=== PATIENT | female | born 1965 | race Caucasian/White ===

== ENCOUNTER 2017-11-01 15:35 | Emergency (ER) | payer MEDICAID, SELFPAY ==
[2017-11-01 15:40] VITALS: BP 148/91; PULSE 112; RESP 20; TEMP 37.1; O2SAT 99; BMI 31.1
--- NOTE | 2017-11-01 15:45 | XR_ITS ---
XR foot RT min 3V Ordering Physician: Patient Age: 52 years: Female HISTORY: ITS.REASON: FELL ON STAIRS TECHNIQUE: 3 views right foot COMPARISON : None available FINDINGS . No fracture nor dislocation. Toes and metatarsals intact. Joint spaces well-maintained no erosions. A specifically the fifth metatarsal is intact. Plantar calcaneal spur broad-based 5 mm length. Mild flexion at the fourth toe. IMPRESSION: No fracture nor acute findings . No significant acute findings radiographically.
[2017-11-01 15:50] VITALS: BP 148/91; PULSE 112; RESP 20; TEMP 37.1; O2SAT 99; BMI 30.6
--- NOTE | 2017-11-01 16:12 | HMH.EDUTC ---
[facility] [place] Clinical Impression: Foot sprain Qualifiers: Encounter type: initial encounter Laterality: right Qualified Code(s): S93.601A - Unspecified sprain of right foot, initial encounter Disposition: Home, Self-Care Condition on Discharge: Good Instructions: DI for Foot Sprain, DI for Contusion, DI for Abrasion, How to Use Crutches, How To Perform RICE (Rest, Ice, Compress, Elevate) Additional Instructions: *weight bearing as tolerated *RICE, Rest the extremity, Ice 15-20 minutes 3-4 times daily, Compress- wear the nico wrap as discussed as much as possible to help reduce swelling and pain, Elevate the extremity when at rest *Nico wrap is for support and help control swelling, use it except in the shower. Be sure that is not to tight but not to loose either *Elevate when resting *Ibuprofen every 6-8 hours as needed for pain an inflammation. If need something more can take Tylenol in between doses of Ibuprofen to help Immediately follow up for new or worsening of symptoms, or no noticeable improvement over the next 3-5 days Follow up with family doctor if pain persists for referral to Orthopedics if needed Straight to ER if any life threatening symptoms Time of Disposition: 16:25 Medical Decision Making - Medical Records Medical records reviewed: Yes: I reviewed the patient's medical records. - Boy Inquiry Pt receiving controlled substance: No Boy was queried for this patient: No Vital Signs: 11/01/17 15:40 11/01/17 15:50 Temperature 98.7 F 98.7 F Temperature Source Oral Oral Pulse Rate [Left Radial] 112 H 112 H Respiratory Rate 20 20 Blood Pressure [Right Arm] 148/91 148/91 Blood Pressure Mean [Right Arm] 110 110 Blood Pressure Source [Right Arm] Automatic Cuff Blood Pressure Position [Right Arm] Sitting Sitting 02 Sat by Pulse Oximetry 99 99 Oxygen Delivery Method Room Air Orders (Tests/Meds): ORDERS Category Date Time Status Foot XR right minimum 3 views [XR foot RT min 3V] Stat Exams 11/01/17 15:45 Taken - Radiology Data #1 Image(s): Foot/Toes Image Reviewed: Yes I reviewed the patient's radiology image Preliminary Findings: No Fracture Seen [facility] [place] - General Stated complaint: AO 11/01/17 right foot pain Time Seen by Provider: 11/01/17 16:12 Mode of Arrival: Ambulatory Source of Information: Patient Limitations: No Limitations Description of Symptoms (Recalled from Triage Doc. by RN): TRIPPED ON THE STAIRS PRIOR TO ARRICAL INJURING HER RT FOOT. HEENT Symptoms (Recalled from RN notes): No Resp Symptoms (Recalled from RN notes): No Skin Symptoms (Recalled from RN notes): No MS Symptoms (Recalled from RN notes): Yes Functional Status (Recalled from RN notes): NA - History of Present Illness Provider Complaint: Patient state that she tripped and fell down stairs Now having pain in top of foot over right great toe with mild swelling and mild bruising. State that she fell about 2-3 hours ago State that she is able to move toes just has some pain when she tries to bear weight - Related Data Home Medications Medication Instructions Recorded Confirmed Atorvastatin Calcium [Atorvastatin 40 mg PO DAILY 11/01/17 11/01/17 40mg Tab] Losartan/Hydrochlorothiazide 1 each PO DAILY 11/01/17 11/01/17 [Losartan-Hctz 50-12.5 mg Tab] Metformin HCl [Metformin 500mg 0 mg PO BID 11/01/17 11/01/17 Tablet] Montelukast Sodium [Singulair 10mg 10 mg PO PM 11/01/17 11/01/17 tablet] PARoxetine HCl [Paxil] 40 mg PO DAILY 11/01/17 11/01/17 Pantoprazole Sodium [Protonix 40mg 40 mg PO DAILY 11/01/17 11/01/17 tablet] Saxagliptin HCl [Onglyza] 5 mg PO DAILY 11/01/17 11/01/17 Allergies Allergy/AdvReac Type Severity Reaction Status Date / Time cephalexin [CEPHALEXIN] Allergy Mild Verified 11/01/17 15:47 ciprofloxacin [From CIPRO] Allergy Mild Verified 11/01/17 15:47 sulfamethoxazole Allergy Mild Verified 11/01/17 15:47 [From BACTRIM] trimethoprim [From BACTRIM
--- NOTE | 2017-11-01 16:21 | ED_ITS ---
[facility] [place] Clinical Impression: Foot sprain Qualifiers: Encounter type: initial encounter Laterality: right Qualified Code(s): S93.601A - Unspecified sprain of right foot, initial encounter Disposition: Home, Self-Care Condition on Discharge: Good Instructions: DI for Foot Sprain, DI for Contusion, DI for Abrasion, How to Use Crutches, How To Perform RICE (Rest, Ice, Compress, Elevate) Additional Instructions: *weight bearing as tolerated *RICE, Rest the extremity, Ice 15-20 minutes 3-4 times daily, Compress- wear the nico wrap as discussed as much as possible to help reduce swelling and pain, Elevate the extremity when at rest *Nico wrap is for support and help control swelling, use it except in the shower. Be sure that is not to tight but not to loose either *Elevate when resting *Ibuprofen every 6-8 hours as needed for pain an inflammation. If need something more can take Tylenol in between doses of Ibuprofen to help Immediately follow up for new or worsening of symptoms, or no noticeable improvement over the next 3-5 days Follow up with family doctor if pain persists for referral to Orthopedics if needed Straight to ER if any life threatening symptoms Time of Disposition: 16:25 Medical Decision Making - Medical Records Medical records reviewed: Yes: I reviewed the patient's medical records. - Boy Inquiry Pt receiving controlled substance: No Boy was queried for this patient: No Vital Signs: 11/01/17 15:40 11/01/17 15:50 Temperature 98.7 F 98.7 F Temperature Source Oral Oral Pulse Rate [Left Radial] 112 H 112 H Respiratory Rate 20 20 Blood Pressure [Right Arm] 148/91 148/91 Blood Pressure Mean [Right Arm] 110 110 Blood Pressure Source [Right Arm] Automatic Cuff Blood Pressure Position [Right Arm] Sitting Sitting 02 Sat by Pulse Oximetry 99 99 Oxygen Delivery Method Room Air Orders (Tests/Meds): ORDERS Category Date Time Status Foot XR right minimum 3 views [XR foot RT min 3V] Stat Exams 11/01/17 15:45 Taken - Radiology Data #1 Image(s): Foot/Toes Image Reviewed: Yes I reviewed the patient's radiology image Preliminary Findings: No Fracture Seen [facility] [place] HPI - General Stated complaint: AO 11/01/17 right foot pain Time Seen by Provider: 11/01/17 16:12 Mode of Arrival: Ambulatory Source of Information: Patient Limitations: No Limitations Description of Symptoms (Recalled from Triage Doc. by RN): TRIPPED ON THE STAIRS PRIOR TO ARRICAL INJURING HER RT FOOT. HEENT Symptoms (Recalled from RN notes): No Resp Symptoms (Recalled from RN notes): No Skin Symptoms (Recalled from RN notes): No MS Symptoms (Recalled from RN notes): Yes Functional Status (Recalled from RN notes): NA - History of Present Illness Provider Complaint: Patient state that she tripped and fell down stairs Now having pain in top of foot over right great toe with mild swelling and mild bruising. State that she fell about 2-3 hours ago State that she is able to move toes just has some pain when she tries to bear weight - Related Data Home Medications Medication Instructions Recorded Confirmed Atorvastatin Calcium [Atorvastatin 40 mg PO DAILY 11/01/17 11/01/17 40mg Tab] Losartan/Hydrochlorothiazide 1 each PO DAILY 11/01/17 11/01/17 [Losartan-Hctz 50-12.5 mg Tab] Metformin HCl [Metformin 500mg 0 mg PO BID 11/01/17 11/01/17 Tablet]
[2017-11-01 16:34] VITALS: BP 148/91; PULSE 112; RESP 20; TEMP 37.1; O2SAT 99
== END 2017-11-01 16:35 | disposition home or self-care (01) ==
LOC: UTC 16:32
PROVIDERS: Emergency Provider Nurse Practitioner; PCP Nurse Practitioner
DX: S93.601A Unspecified sprain of right foot, initial encounter (principal); W10.9XXA Fall (on) (from) unspecified stairs and steps, initial encounter; Y93.01 Activity, walking, marching and hiking; Y92.019 Unspecified place in single-family (private) house as the place of occurrence of the external cause; E11.9 Type 2 diabetes mellitus without complications; Z79.84 Long term (current) use of oral hypoglycemic drugs
CPT/HCPCS: 73630; 99202

== ENCOUNTER 2022-11-15 06:45 | Emergency (ER) | payer MEDICAID, SELFPAY ==
[2022-11-15 06:47] VITALS: BP 147/81; PULSE 99; RESP 16; TEMP 36.6; O2SAT 99; BMI 28.3
--- NOTE | 2022-11-15 06:58 | XR_ITS ---
PROCEDURE INFORMATION: Exam: XR Lumbosacral Spine Exam date and time: 11/15/2022 7:08 AM Age: 57 years old Clinical indication: Injury or trauma; Fall; Blunt trauma (contusions or hematomas) TECHNIQUE: Imaging protocol: Radiologic exam of the lumbosacral spine. Views: 2 or 3 views. COMPARISON: No relevant prior studies available. FINDINGS: Bones/joints: There is no evidence of acute fracture.There is no evidence of malalignment or dislocation. Intervertebral disc spaces are maintained. Minimal anterior osteophyte formation L4 and L5 Soft tissues: Unremarkable. IMPRESSION: 1. There is no evidence of acute fracture.There is no evidence of malalignment or dislocation. 2. Intervertebral disc spaces are maintained.
--- NOTE | 2022-11-15 06:58 | XR_ITS ---
PROCEDURE INFORMATION: Exam: XR Left Knee Exam date and time: 11/15/2022 7:07 AM Age: 57 years old Clinical indication: Injury or trauma; Fall; Blunt trauma; Knee; Bilateral TECHNIQUE: Imaging protocol: Radiologic exam of the left knee. Views: 3 views. COMPARISON: No relevant prior studies available. FINDINGS: Bones/joints: Mild joint space narrowing in the patellofemoral joint consistent with degenerative changes. There is no evidence of acute fracture.There is no evidence of malalignment or dislocation. Soft tissues: Normal. IMPRESSION: 1. Mild joint space narrowing in the patellofemoral joint consistent with degenerative changes. 2. There is no evidence of acute fracture.There is no evidence of malalignment or dislocation.
--- NOTE | 2022-11-15 06:58 | XR_ITS ---
PROCEDURE INFORMATION: Exam: XR Right Knee Exam date and time: 11/15/2022 7:05 AM Age: 57 years old Clinical indication: Injury or trauma; Fall; Blunt trauma; Knee; Bilateral TECHNIQUE: Imaging protocol: Radiologic exam of the right knee. Views: 3 views. COMPARISON: CR [id number] XR foot RT min 3V 11/01/2017 3:46 PM FINDINGS: Bones/joints: Mild Tricompartmental joint space narrowing and osteophyte formation consistent with degenerative changes. There is no evidence of acute fracture.There is no evidence of malalignment or dislocation. Soft tissues: Normal. IMPRESSION: 1. Mild Tricompartmental joint space narrowing and osteophyte formation consistent with degenerative changes. 2. There is no evidence of acute fracture.There is no evidence of malalignment or dislocation.
--- NOTE | 2022-11-15 07:24 | PC.NURSE ---
PT RETURNED FROM XR, LAB AT BEDSIDE
--- NOTE | 2022-11-15 08:04 | HMH.EDFALL ---
Discharge Plan Disposition Patient Disposition: Home, Self-Care Condition: Fair Prescriptions Prescriptions: New methocarbamol 500 mg tablet 500 mg PO Q8H Qty: 10 0RF No Action atorvastatin 40 MG tablet 40 mg PO DAILY metformin 500 MG tablet 0 mg PO BID pantoprazole 40 MG tablet,delayed release (DR/EC) 40 mg PO DAILY montelukast 10 MG tablet 10 mg PO PM paroxetine HCl [Paxil] 40 MG tablet 40 mg PO DAILY losartan-hydrochlorothiazide 1 EACH tablet 1 ea PO DAILY saxagliptin [Onglyza] 5 MG tablet 5 mg PO DAILY Referrals Follow up/Referrals: Annabelle Gross APRN [Primary Care Provider] - 3 days Clinical Impressions Clinical Impression: Back strain, Contusion of knee, left, Contusion of knee, right Instructions Patient Instructions: How to Prevent Falls, DI for Back Strain or Sprain Print Language Print Language: Indonesian Discharge ED Provider: Nilton Beckham HPI General Chief Complaint: Fall Stated Complaint: bilateral knee pain, back pain, neck pain Time Seen by Provider: 11/15/22 08:02 Mode of Arrival: Ambulatory Source of Information: Patient Limitations: No Limitations Description of Symptoms (Recalled from ER Triage Doc. by RN): pt states she walked in pt's room and floor mats moved and she fell on knees and hands. pt c/o bilateral knee ,and back pain History of Present Illness HPI Narrative: The patient reports that she was working and went into a patient's room. The patient slipped and fell on an antislip mat that broke apart. The patient fell forward on her knees. The patient reports b/l knee pain and b/l lower back pain. MD complaint: fall Fall from: walking Place fall occurred: work Loss of consciousness: none Context: tripped/slipped Location of injury: back Location of injury - extremities: Bilateral: knee Severity: mild Quality: burning Associated symptoms (after fall): denies Related Data Home Medications Medication Instructions Recorded Confirmed atorvastatin 40 mg tablet 40 mg PO DAILY Hypertension 11/01/17 11/01/17 losartan 50 mg-hydrochlorothiazide 1 ea PO DAILY Hypertension 11/01/17 11/01/17 12.5 mg tablet metformin 500 mg tablet 0 mg PO BID Diabetes 11/01/17 11/01/17 montelukast 10 mg tablet 10 mg PO PM ALLERGIES 11/01/17 11/01/17 pantoprazole 40 mg tablet,delayed 40 mg PO DAILY GERD 11/01/17 11/01/17 release paroxetine HCl 40 mg tablet (Paxil) 40 mg PO DAILY Anxiety 11/01/17 11/01/17 saxagliptin 5 mg tablet (Onglyza) 5 mg PO DAILY Diabetes 11/01/17 11/01/17 Previous Rx's Medication Instructions Recorded methocarbamol 500 mg tablet 500 mg PO Q8H #10 tabs 11/15/22 Allergies Allergy/AdvReac Type Severity Reaction Status Date / Time cephalexin [CEPHALEXIN] Allergy Mild Verified 11/01/17 15:47 ciprofloxacin [From CIPRO] Allergy Mild Verified 11/01/17 15:47 sulfamethoxazole Allergy Mild Verified 11/01/17 15:47 [From BACTRIM] trimethoprim [From BACTRIM] Allergy Mild Verified 11/01/17 15:47 [facility] Disclaimer: The information contained in this section may have been updated after the patient was seen, as this information can be updated by other users. Social History Smoking Status: Never smoker alcohol intake: never current occupational status: employed Travel in the last 8 weeks: None ROS Obtained: Yes Systems reviewed as appropriate & no additional complaints except as documented Musculoskeletal Musculoskeletal: Reports arthralgias and Reports back pain Physical Exam General General appearance: alert and in no apparent distress Eye Eye exam: Present normal appearance and EOMI ENT ENT exam: Present normal exam and mucous membranes moist Respiratory Respiratory exam: Present normal lung sounds bilaterally Cardiovascular Cardiovascular exam: Present regular rate Extremities Exam Extremities exam: Present normal inspection Back Exam Back exam: Present normal inspection and te
[2022-11-15 08:30] VITALS: BP 145/80; PULSE 87; RESP 16; TEMP 36.6; O2SAT 99
[2022-11-15 10:49] LABS: COC Drug Screen Collection Only
== END 2022-11-15 08:40 | disposition home or self-care (01) ==
PROVIDERS: Emergency Provider Emergency Medicine; PCP Nurse Practitioner Family
DX: S39.012A Strain of muscle, fascia and tendon of lower back, initial encounter (principal); M25.561 Pain in right knee; M25.562 Pain in left knee; M54.2 Cervicalgia; W01.0XXA Fall on same level from slipping, tripping and stumbling without subsequent striking against object, initial encounter; Y99.0 Civilian activity done for income or pay
CPT/HCPCS: 72100; 73562; 99284

== ENCOUNTER 2024-08-19 19:02 | Emergency (ER) | payer OTHER, SELFPAY ==
[2024-08-19 19:15] VITALS: BP 138/76; PULSE 94; RESP 14; TEMP 37.2; O2SAT 99; BMI 29.7
--- NOTE | 2024-08-19 19:42 | ECG_ITS ---
APPROVED REPORT Exam: Resting ECG HR:89 bpm ECG Measurements Heart Rate [address] 165 P 54 QRSd 82 QRS 33 QT 341 T 9 QTc 388 Conclusion SINUS RHYTHM NORMAL ECG Electronically signed by : ALPESH MOLINA, 08/19/2024 23:27:17
--- NOTE | 2024-08-19 19:42 | ED_ITS ---
Discharge Plan Disposition Patient Disposition: Home, Self-Care Condition: Good Prescriptions Prescriptions: No Action atorvastatin 40 MG tablet 40 mg PO DAILY metformin 500 MG tablet 0 mg PO BID pantoprazole 40 MG tablet,delayed release (DR/EC) 40 mg PO DAILY montelukast 10 MG tablet 10 mg PO PM paroxetine HCl [Paxil] 40 MG tablet 40 mg PO DAILY losartan-hydrochlorothiazide 1 EACH tablet 1 ea PO DAILY saxagliptin [Onglyza] 5 MG tablet 5 mg PO DAILY methocarbamol 500 mg tablet 500 mg PO Q8H Qty: 10 0RF Referrals Follow up/Referrals: Provider,Referral, MD [Primary Care Provider] - See instructions Activity Restrictions/Add. Instructions Additional Instructions/Restrictions: For any complaints return Follow-up with primary care Clinical Impressions Clinical Impression: Electric shock Qualifiers: Encounter type: initial encounter Qualified Code(s): T75.4XXA - Electrocution, initial encounter Instructions Patient Instructions: DI for Electric Shock Injuries Print Language Print Language: Welsh Discharge ED Provider: Mauri Iraheta General Adult HPI <Jasiel Tam ([facility]), HORSE BREAKER - Last Filed: 08/19/24 21:20> General Chief complaint: Chest Pain Stated complaint: pacemaker shocked pt while moving bed Time Seen by Provider: 08/19/24 19:18 Mode of Arrival: EMS Source of Information: Patient and EMS Description of Symptoms (Recalled from ER Triage Doc. by RN): pt presents via ems with c/o electrocution from frayed wire while at work. 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 Pt reports tingling from head to toe on the left side with associated headache and chest pressure. History of Present Illness HPI narrative: 59-year-old female presents for numbness and tingling to left arm, leg and face. Patient states she was at work when a bed was malfunctioning she crawled under the bed to see what was going on there was a bedpost on the cord and when her face was touching the bed when she touched the cord she felt a lightening bolt to the face and was thrown back from being shocked. Patient states she feels tingly in her left jaw, left arm and leg. Related Data Home Medications ?Medication ?Instructions ?Recorded ?Confirmed atorvastatin 40 mg tablet 40 mg PO DAILY Hypertension 11/01/17 11/01/17 losartan 50 mg-hydrochlorothiazide 1 ea PO DAILY Hypertension 11/01/17 11/01/17 12.5 mg tablet metformin 500 mg tablet 0 mg PO BID Diabetes 11/01/17 11/01/17 montelukast 10 mg tablet 10 mg PO PM ALLERGIES 11/01/17 11/01/17 pantoprazole 40 mg tablet,delayed 40 mg PO DAILY GERD 11/01/17 11/01/17 release paroxetine HCl 40 mg tablet (Paxil) 40 mg PO DAILY Anxiety 11/01/17 11/01/17 saxagliptin 5 mg tablet (Onglyza) 5 mg PO DAILY Diabetes 11/01/17 11/01/17 Previous Rx's ?Medication ?Instructions ?Recorded methocarbamol 500 mg tablet 500 mg PO Q8H #10 tabs 11/15/22 Allergies Allergy/AdvReac Type Severity Reaction Status Date / Time cephalexin (CEPHALEXIN) Allergy Mild Verified 11/01/17 15:47 ciprofloxacin (From CIPRO) Allergy Mild Verified 11/01/17 15:47 sulfamethoxazole (From Allergy Mild Verified 11/01/17 15:47 BACTRIM) trimethoprim (From BACTRIM) Allergy Mild Verified 11/01/17 15:47 PFSH <[facility] [employer]SE [facility] - Last Filed: 08/19/24 21:20> PFS Disclaimer: The information contained in this section may have been updated after the patient was seen, as this information can be updated by other users. Social History , [employer]SE [employer]ER) Smoking Status: Never smoker alcohol intake: never current occupational status: employed Travel in the last 8 weeks: None Have you lived/traveled outside [place] in past 30 days?: No Contact w/someone who lives/traveled outside [place] past 30 days?: No Exposure to someone with infectious disease in past 14 days?: No Do you have a fever (greater than 100.4 F or 38 C)?: No Have you tested positive for COVID-19: No Exposed to someone with COVID-19 in past 14 days?: No Do you have a sore throat?: No Do you have a cough?: No Do you have any weakness?: No Do you have any diarrhea?: No Are you experiencing any unusual bleeding?: No Do you have any muscle aches/pain?: No Do you have any abdominal pain?: No Are you experiencing loss of taste or smell?: No <Jasiel humberto ([facility]), H[employer]SE [employer]ER - Last Filed: 08/19/24 21:20> ROS Obtained: Yes Systems reviewed as appropriate & no additional complaints except as documented Cardiovascular Cardiovascular: Reports system reviewed and no additional complaints, except as documented and Reports as per HPI Musculoskeletal Musculoskeletal: Reports system reviewed and no additional complaints, except as documented and Reports as per HPI Neurologic Neurologic: Reports system reviewed and no additional complaints, except as documented and Reports as per HPI Physical Exam <Jasiel Tam ([facility]), HORSE BRE[employer]ER - Last Filed: 08/19/24 21:20> General General appearance: alert and in no apparent distress Eye Eye exam: Present normal appearance and PERRL ENT ENT exam: Present normal exam Respiratory Respiratory exam: Present normal lung sounds bilaterally Cardiovascular Cardiovascular exam: Present regular rate and normal rhythm Neurological Exam Neurological exam: Present alert, oriented X3 and CN II-XII intact Skin Skin exam: Present warm and intact Medical Decision Making <Jasiel Tam ([facility]), H[employer]SE BRE[employer]ER - Last Filed: 08/19/24 21:20> Medical Records Medical records reviewed: Yes I reviewed the patient's medical records. Screening: Per USPSTF and CDC recommendations, given the prevalence of disease in our region, it is our hospital?s policy to screen for HIV and viral Hepatitis for all patients aged 18 and over and those with ongoing risk factors. Boy Inquiry Pt receiving controlled substance: No Boy was queried for this patient: No Vital Signs: 08/19/24 19:15 08/19/24 20:54 08/19/24 21:28 Temperature 99 F 97.9 F Temperature Source Oral Pulse Rate 84 76 Pulse Rate [Right Radial] 94 H Respiratory Rate 14 18 20 Blood Pressure 153/76 H 153/76 H Blood Pressure [Right Arm] 138/76 Blood Pressure Mean [Right Arm] 96 Blood Pressure Position [Right Arm] Sitting 02 Sat by Pulse Oximetry 99 98 Oxygen Delivery Method Room Air Room Air Lab Data Lab results reviewed: Yes I reviewed the patient's lab results. Lab Results 08/19/24 19:27: HCV Ab LARRY w/Rflx PCR Qn Negative, HIV Ag/Ab Combo Qual Negative 08/19/24 20:25: WBC 9.6, RBC 4.88, Hgb 14.8, Hct 44.0, MCV 90.2, MCH 30.3, MCHC 33.6, RDW 11.9, Plt Count 311, MPV 9.3, Neut % (Auto) 63.2, Lymph % (Auto) 29.5, [place] % (Auto) 5.7, Eos % (Auto) 0.9, Baso % (Auto) 0.5, Neut # (Auto) 6.1, Lymph # (Auto) 2.8, [place] # (Auto) 0.6, Eos # (Auto) 0.1, Baso # (Auto) 0.1, Sodium 139, Potassium 3.5, Chloride 106, Carbon Dioxide 21 L, Anion Gap 15.5 H, BUN 14, Creatinine 0.60, Estimated Creat Clear 121, Estimated GFR 102, Est GFR ( Amer) 124, Glucose 121 H, Calcium 9.2, Total Bilirubin 0.8, AST 40 H, ALT 25, A lkaline Phosphatase 139 H, Total Creatine Kinase 55, Troponin I < 0.01, Total Protein 8.2, Albumin 4.6, Globulin 3.6 H, Albumin/Globulin Ratio 1.3 08/19/24 20:25 08/19/24 20:25 Orders (Tests/Meds): ORDERS Category Date Time Status Chest XR -- portable [XR chest portable] Stat Exams 08/19/24 19:42 Completed CBC [Complete Blood Count Auto Diff] Stat Lab 08/19/24 20:25 Completed CK [Creatine Kinase] Stat Lab 08/19/24 20:25 Completed CMP [Comprehensive Metabolic Panel] Stat Lab 08/19/24 20:25 Completed HIV Combo Stat Lab 08/19/24 19:27 Completed Hepatitis C Ab Qual. W/ RFX Stat Lab 08/19/24 19:27 Completed Trop I [Troponin I] Stat Lab 08/19/24 20:25 Completed EKG Request [ECG Request] Stat Y 08/19/24 19:42 Ordered Medical Decision Narrative: In summary patient is a 59-year-old female who presents to the emergency department for evaluation of numbness and tingling to the left side of the body status post electrocution.. Patient is hemodynamically stable upon arrival, afebrile. Unremarkable physical exam. Differential diagnosis includes electrocution. Initial workup will be conducted with labs, chest x-ray, EKG,. Initial inventions include monitoring vitals and labs. Initial workup reviewed by nh labs, EKG, chest x-ray. Upon repeat evaluation patient states she is feeling fine has mild numbness and tingling in her face arm and leg but wants to go home. Given this patient appropriate discharge at this time if any symptoms worsen she is to come back to the ER for eval <Mauri Iraheta MD - Last Filed: 08/20/24 19:21> Vital Signs: 08/19/24 19:15 08/19/24 20:54 08/19/24 21:28 Temperature 99 F 97.9 F Temperature Source Oral Pulse Rate 84 76 Pulse Rate [Right Radial] 94 H Respiratory Rate 14 18 20 Blood Pressure 153/76 H 153/76 H Blood Pressure [Right Arm] 138/76 Blood Pressure Mean [Right Arm] 96 Blood Pressure Position [Right Arm] Sitting 02 Sat by Pulse Oximetry 99 98 Oxygen Delivery Method Room Air Room Air Lab Data Lab Results 08/19/24 19:27: HCV Ab LARRY w/Rflx PCR Qn Negative, HIV Ag/Ab Combo Qual Negative 08/19/24 20:25: WBC 9.6, RBC 4.88, Hgb 14.8, Hct 44.0, MCV 90.2, MCH 30.3, MCHC 33.6, RDW 11.9, Plt Count 311, MPV 9.3, Neut % (Auto) 63.2, Lymph % (Auto) 29.5, [place] % (Auto) 5.7, Eos % (Auto) 0.9, Baso % (Auto) 0.5, Neut # (Auto) 6.1, Lymph # (Auto) 2.8, [place] # (Auto) 0.6, Eos # (Auto) 0.1, Baso # (Auto) 0.1, Sodium 139, Potassium 3.5, Chloride 106, Carbon Dioxide 21 L, Anion Gap 15.5 H, BUN 14, Creatinine 0.60, Estimated Creat Clear 121, Estimated GFR 102, Est GFR ( Amer) 124, Glucose 121 H, Calcium 9.2, Total Bilirubin 0.8, AST 40 H, ALT 25, A lkaline Phosphatase 139 H, Total Creatine Kinase 55, Troponin I < 0.01, Total Protein 8.2, Albumin 4.6, Globulin 3.6 H, Albumin/Globulin Ratio 1.3 Orders (Tests/Meds): ORDERS Category Date Time Status Chest XR -- portable [XR chest portable] Stat Exams 08/19/24 19:42 Completed CBC [Complete Blood Count Auto Diff] Stat Lab 08/19/24 20:25 Completed CK [Creatine Kinase] Stat Lab 08/19/24 20:25 Completed CMP [Comprehensive Metabolic Panel] Stat Lab 08/19/24 20:25 Completed HIV Combo Stat Lab 08/19/24 19:27 Completed Hepatitis C Ab Qual. W/ RFX Stat Lab 08/19/24 19:27 Completed Trop I [Troponin I] Stat Lab 08/19/24 20:25 Completed EKG Request [ECG Request] Stat Y 08/19/24 19:42 Ordered Medical Decision Narrative: In summary patient is a 59-year-old female who presents to the emergency department for evaluation of numbness and tingling to the left side of the body status post electrocution.. Patient is hemodynamically stable upon arrival, afebrile. Unremarkable physical exam. Differential diagnosis includes electrocution. Initial workup will be conducted with labs, chest x-ray, EKG,. Initial inventions include monitoring vitals and labs. Initial workup reviewed by me labs, EKG, chest x-ray. Upon repeat evaluation patient states she is feeling fine has mild numbness and tingling in her face arm and leg but wants to go home. Given this patient appropriate discharge at this time if any symptoms worsen she is to come back to the ER for eval I was consulted by the ALE, and we discussed the complexity of the problems being addressed.I approved the treatment and management plan for this patient?s care in the Emergency Department, thus performing a substantive portion of the medical decision making.Signed, Mauri Iraheta MD MBA Critical Care <Jasiel Tam ([facility]), HORSE BREAKER - Last Filed: 08/19/24 21:20> Critical Care Time Critical Care Time: Yes Attestation: On 08/19/24, the high probability of a clinically significant, sudden or life threatening deterioration of the following system(s) required my full and direct attention, intervention and personal management. The time I documented below is in addition to time spent performing reported procedures but includes the following listed in this critical care notation. Total Time Total Critical Care Time: 20
--- NOTE | 2024-08-19 19:42 | XR_ITS ---
PROCEDURE INFORMATION: Exam: XR Chest Exam date and time: 08/19/2024 7:49 PM Age: 59 years old Clinical indication: Other: Shock TECHNIQUE: Imaging protocol: Radiologic exam of the chest. Views: 1 view. COMPARISON: No relevant prior studies available. FINDINGS: Lungs: Pleuroparenchymal scarring of the lung bases with subsegmental atelectasis is present without consolidations or pleural effusions that project above the diaphragm. Pleural spaces: Unremarkable. No pleural effusion. No pneumothorax. Heart/Mediastinum: Unremarkable. No cardiomegaly. Bones/joints: Unremarkable. IMPRESSION: Pleuroparenchymal scarring of the lung bases with subsegmental atelectasis is present without consolidations or pleural effusions that project above the diaphragm.
[2024-08-19 20:24] LABS: HIV Combo NEGATIVE (Negative)
--- NOTE | 2024-08-19 20:30 | ECG_ITS ---
APPROVED REPORT Exam: Resting ECG HR:82 bpm ECG Measurements Heart Rate 82 AXES WY 173 P 65 QRSd 85 QRS 44 QT 374 T 22 QTc 412 Conclusion SINUS RHYTHM NORMAL ECG Electronically signed by : ALPESH MOLINA, 08/19/2024 23:26:38
[2024-08-19 20:32] LABS: Hepatitis C Ab Qual. W/ RFX NEGATIVE (Negative)
[2024-08-19 20:41] LABS: Albumin Level 4.6 g/dl (3.5-5.0); Chloride 106 mmol/L (98-107); Potassium 3.5 mmoL/L (3.5-5.1); Sodium 139 mmol/L (136-145)
[2024-08-19 20:44] LABS: Alanine Aminotransferase 25 U/L (12-78); Albumin/Globulin Ratio 1.3 (1.1-1.8); Alkaline Phosphatase 139 U/L (38-126); Anion Gap 15.5 mEq/L (5-15); Aspartate Amino Transferase 40 U/L (14-36); Basophils # 0.1 K/mm3 (0-0.2); Basophils % 0.5 % (0.1-2.0); Bilirubin,Total 0.8 mg/dl (0.2-1.3); Blood Urea Nitrogen 14 mg/dl (7-17); Carbon Dioxide 21 mmol/L (22.0-30.0); Creatine Kinase 55 U/L (30-135); Creatinine Clearance Estimated 121 mL/min (50-200); Eosinophils # 0.1 K/mm3 (0.0-0.4); Eosinophils % 0.9 % (0.1-12.0); Estimated Glomerular Filt Rate 102 ml/min (>60); GFR (African American) 124 ML/MIN (>60); Globulin 3.6 g/dL (1.3-3.2); Hemoglobin 14.8 g/dL (12.2-16.2); Lymphocytes # 2.8 K/mm3 (0.7-4.5); Lymphocytes % 29.5 % (10-50); Mean Corpuscular HGB Conc 33.6 g/dL (31.8-35.4); Mean Corpuscular Hemoglobin 30.3 pg (27.0-31.2); Mean Corpuscular Volume 90.2 fl (81-99); Mean Platelet Volume 9.3 fl (7.4-10.4); Monocytes # 0.6 K/mm3 (0.1-1.0); Monocytes % 5.7 % (1.7-9.3); Neutrophils # 6.1 K/mm3 (1.8-7.8); Neutrophils % 63.2 % (37.0-80.0); Nucleated Red Blood Cells # 0 10^3/uL; Nucleated Red Blood Cells % 0 %; Platelet Count 311 K/mm3 (142-424); Red Blood Count 4.88 M/mm3 (4.20-5.40); Red Cell Distribution Width 11.9 % (11.5-17.5); Red Cell Distribution Width-SD 38.5 fL; Total Protein,Serum 8.2 g/dl (6.3-8.2); White Blood Count 9.6 K/mm3 (4.8-10.8)
[2024-08-19 20:45] LABS: Calcium 9.2 mg/dl (8.4-10.2); Glucose 121 mg/dl (74-100)
[2024-08-19 20:54] VITALS: BP 153/76; PULSE 84; RESP 18; O2SAT 98
[2024-08-19 20:57] LABS: Troponin I < 0.01 ng/ml (0.00-0.034)
[2024-08-19 21:28] VITALS: BP 153/76; PULSE 76; RESP 20; TEMP 36.6; O2SAT 97
== END 2024-08-19 21:34 | disposition home or self-care (01) ==
PROVIDERS: Nurse Practitioner Family; Emergency Provider Emergency Medicine
DX: T75.4XXA Electrocution, initial encounter (principal); R07.89 Other chest pain; R20.2 Paresthesia of skin; R51.9 Headache, unspecified; Z11.59 Encounter for screening for other viral diseases; Z11.4 Encounter for screening for human immunodeficiency virus [HIV]; W86.8XXA Exposure to other electric current, initial encounter
CPT/HCPCS: 99284; 71045; 80053; 82550; 84484; 85025; 86803; 87389; 93005

== ENCOUNTER 2024-09-19 12:08 | Outpatient (CLI) | payer MEDICAID, SELFPAY | END 2024-09-19 23:59 | LOC: LAB.DROPOF 09-22 12:09 | PROVIDERS: Visit Provider Student in an Organized Health Care Education/Training Program | DX: N39.0 Urinary tract infection, site not specified (principal) | CPT/HCPCS: 87086 ==

== ENCOUNTER 2024-10-06 06:35 | Emergency (ER) | payer MEDICAID, SELFPAY ==
[2024-10-06] VITALS (7 sets, daily range): BP systolic 99–153; BP diastolic 50–75; PULSE 72–85; RESP 17; TEMP 37–37.1; O2SAT 95–98; BMI 30.8
--- NOTE | 2024-10-06 06:52 | XR_ITS ---
FINAL REPORT TECHNIQUE: Chest PA & Lateral CLINICAL HISTORY: 3d cough, body aches COMPARISON: 08/19/2024 FINDINGS: 2 views of the chest were performed. The heart size is normal. The mediastinum is within normal limits. There is no acute cardiopulmonary process. There are no pleural effusions. There is no pneumothorax. The bony thorax appears intact. IMPRESSION: No acute cardiopulmonary process. Reviewed, Interpreted and Dictated by Mitesh Reeves MD Transcribed by Mary Chow Authenticated and . [facility]
--- NOTE | 2024-10-06 06:53 | HMH.EDGENADL ---
Discharge Plan Disposition Patient Disposition: Home, Self-Care Condition: Good Prescriptions Prescriptions: New promethazine-codeine 6.25-10 mg/5 mL syrup 5 ml PO Q6H PRN (Reason: cough) Qty: 118 0RF No Action nitrofurantoin monohyd/m-cryst 100 mg capsule 100 mg PO Q12H 7 Days Qty: 14 0RF Rx Instructions: must administer with a meal/food atorvastatin 40 MG tablet 40 mg PO DAILY metformin 500 MG tablet 0 mg PO BID pantoprazole 40 MG tablet,delayed release (DR/EC) 40 mg PO DAILY montelukast 10 MG tablet 10 mg PO PM paroxetine HCl [Paxil] 40 MG tablet 40 mg PO DAILY losartan-hydrochlorothiazide 1 EACH tablet 1 ea PO DAILY saxagliptin [Onglyza] 5 MG tablet 5 mg PO DAILY methocarbamol 500 mg tablet 500 mg PO Q8H Qty: 10 0RF Referrals Follow up/Referrals: Parker Ortiz PA [Primary Care Provider, Medical] - See instructions Activity Restrictions/Add. Instructions Additional Instructions/Restrictions: I have prescribed a cough medication for you to take as needed. Please use your inhalers that you are previously prescribed as needed. The steroids you were given in the emergency department will last for approximately 72 hours. Please return with any new or worsening symptoms. Clinical Impressions Clinical Impression: Acute upper respiratory infection Instructions Patient Instructions: Cough Print Language Print Language: Kyrgyz Discharge ED Provider: Mauri Iraheta General Adult HPI <Anjelica Iverson MD - Last Filed: 10/06/24 07:00> General Chief complaint: Cough Stated complaint: lung congestion cough Time Seen by Provider: 10/06/24 06:45 Mode of Arrival: Ambulatory Source of Information: Patient Description of Symptoms (Recalled from ER Triage Doc. by RN): Patient to ED with complaints of cough and congestion x3days. Patient states that dayquil is no longer helping her cough. Denies fever, N/V/D. History of Present Illness HPI narrative: 59-year-old female who reports she now has diastolic dysfunction because of COVID as well as diabetes presents to the ER for cough and congestion for the last 3 days. Patient reports she believes she has had 4 upper respiratory infections since April. She states she gets symptoms like this with cough and congestion, the cough seems to settle in her chest, and then she gets over it. She reports she has had multiple infections this year but has not been on any antibiotics. Patient reports she was at work having coughing fits so they did a COVID test which was negative. She reports that her coworkers prompted her to come to the ER because she looked pale according to them. Patient reports body aches especially worse with coughing, no fever, headache, dizziness, numbness, tingling, weakness, shortness of breath, no nausea, vomiting, or diarrhea. She reports she has been taking DayQuil without improvement of symptoms. Related Data Home Medications ?Medication ?Instructions ?Recorded ?Confirmed atorvastatin 40 mg tablet 40 mg PO DAILY Hypertension 11/01/17 09/19/24 losartan 50 mg-hydrochlorothiazide 1 ea PO DAILY Hypertension 11/01/17 09/19/24 12.5 mg tablet metformin 500 mg tablet 0 mg PO BID Diabetes 11/01/17 09/19/24 montelukast 10 mg tablet 10 mg PO PM ALLERGIES 11/01/17 09/19/24 pantoprazole 40 mg tablet,delayed 40 mg PO DAILY GERD 11/01/17 09/19/24 release paroxetine HCl 40 mg tablet (Paxil) 40 mg PO DAILY Anxiety 11/01/17 09/19/24 saxagliptin 5 mg tablet (Onglyza) 5 mg PO DAILY Diabetes 11/01/17 09/19/24 Previous Rx's ?Medication ?Instructions ?Recorded methocarbamol 500 mg tablet 500 mg PO Q8H #10 tabs 11/15/22 nitrofurantoin 100 mg PO Q12H 7 days #14 caps 09/19/24 monohydrate/macrocrystals 100 mg capsule promethazine 6.25 mg-codeine 10 5 ml PO Q6H PRN cough #118 mL 10/06/24 mg/5 mL syrup Allergies Allergy/AdvReac Type Severity Reaction Status Date / Time cephalexin (CEPHALEXIN) Allergy Mild Verified 09/19/24 16:08 ciprofloxacin (From CIPRO) Allergy Mild Verified 09/19/24 16:08 sulfamethoxazole (From Allergy Mild Verified 09/19/24 16:08 BACTRIM) trimethoprim (From BACTRIM) Allergy Mild Verified 09/19/24 16:08 [facility] <Anjelica Iverson MD - Last Filed: 10/06/24 07:00> [facility] Disclaimer: The information contained in this section may have been updated after the patient was seen, as this information can be updated by other users. Social History Smoking Status: Never smoker alcohol intake: never current occupational status: employed Travel in the last 8 weeks?: None Have you lived/traveled outside [place] in past 30 days?: No Contact w/someone who lives/traveled outside [place] past 30 days?: No Exposure to someone with infectious disease in past 14 days?: No Do you have a fever (greater than 100.4 F or 38 C)?: No Have you tested positive for COVID-19?: No Exposed to someone with COVID-19 in past 14 days?: No Do you have a sore throat?: No Do you have a cough?: Yes Do you have any weakness?: Yes Do you have any diarrhea?: No Are you experiencing any unusual bleeding?: No Do you have any muscle aches/pain?: No Do you have any abdominal pain?: No Are you experiencing loss of taste or smell?: No <Anjelica Iverson MD - Last Filed: 10/06/24 07:00> ROS Obtained: Yes Systems reviewed as appropriate & no additional complaints except as documented Per HPI Physical Exam <Anjelica Iverson MD - Last Filed: 10/06/24 07:00> General General appearance: alert and in no apparent distress Head Head exam: atraumatic and normocephalic Eye Eye exam: Present PERRL and EOMI ENT ENT exam: Present mucous membranes moist Neck Neck exam: Present normal inspection and full ROM Chest Chest inspection: Present symmetric chest wall rise Respiratory Respiratory exam: Present normal lung sounds bilaterally and other (Moving good air throughout, saturating 98% on room air); Absent respiratory distress, wheezes or stridor Cardiovascular Cardiovascular exam: Present regular rate and normal rhythm Extremities Exam Extremities exam: Present full ROM; Absent edema Neurological Exam Neurological exam: Present alert and oriented X3; Absent motor sensory deficit Psychiatric Psychiatric exam: Present normal affect and normal mood Skin Skin exam: Present warm and dry Medical Decision Making <Anjelica Iverson MD - Last Filed: 10/06/24 07:00> Medical Records Medical records reviewed: Yes I reviewed the patient's medical records. Screening: Per USPSTF and CDC recommendations, given the prevalence of disease in our region, it is our hospital?s policy to screen for HIV and viral Hepatitis for all patients aged 18 and over and those with ongoing risk factors. Boy Inquiry Pt receiving controlled substance: No Vital Signs: 10/06/24 06:46 10/06/24 07:00 10/06/24 07:31 Temperature 98.6 F Temperature Source Oral Pulse Rate 82 80 Pulse Rate [Right] 85 Respiratory Rate 17 Blood Pressure 125/72 143/74 H Blood Pressure [Right Arm] 153/75 H Blood Pressure Mean [Right Arm] 101 Blood Pressure Source Blood Pressure Source [Right Arm] Automatic Cuff Blood Pressure Position Blood Pressure Position [Right Arm] Sitting 02 Sat by Pulse Oximetry 98 96 98 Oxygen Delivery Method Room Air Room Air Room Air 10/06/24 07:35 10/06/24 07:35 10/06/24 07:35 Temperature Temperature Source Pulse Rate 77 79 Pulse Rate [Right] Respiratory Rate Blood Pressure Blood Pressure [Right Arm] Blood Pressure Mean [Right Arm] Blood Pressure Source Blood Pressure Source [Right Arm] Blood Pressure Position Blood Pressure Position [Right Arm] 02 Sat by Pulse Oximetry 98 Oxygen Delivery Method Room Air 10/06/24 08:00 10/06/24 08:30 10/06/24 08:47 Temperature 98.7 F Temperature Source Oral Pulse Rate 73 72 72 Pulse Rate [Right] Respiratory Rate 17 Blood Pressure 119/63 99/50 L 99/50 L Blood Pressure [Right Arm] Blood Pressure Mean [Right Arm] Blood Pressure Source Automatic Cuff Blood Pressure Source [Right Arm] Blood Pressure Position Sitting Blood Pressure Position [Right Arm] 02 Sat by Pulse Oximetry 97 95 Oxygen Delivery Method Room Air Room Air Room Air Lab Data Lab Results 10/06/24 06:42: SARS-CoV-2 (PCR) Not detected, Influenza A Untype (PCR) Not detected, Influenza Type B (PCR) Not detected Orders (Tests/Meds): ED MEDICATIONS Discontinued Medications Generic Name Dose Route Start Last Admin Trade Name Freq PRN Reason Stop Dose Admin Dexamethasone 10 mg 10/06/24 08:37 10/06/24 08:43 Dexamethasone 4mg Tablet PO 10/06/24 08:38 10 mg ONCE ONE Administration Lidocaine HCl 5 ml 10/06/24 06:59 10/06/24 07:35 Lidocaine 2% 5ml Pf Vial IH 10/06/24 07:00 5 ml ONCE ONE Administration ORDERS Category Date Time Status CXR 2 view (NOT portable) [XR chest 2V] Stat Exams 10/06/24 06:52 Completed Rapid PCR Covid and Flu A/B Stat Lab 10/06/24 06:42 Completed Medical Decision Narrative: In summary, this 59-year-old female with comorbidities described in the HPI presents to the emergency department today with cough and congestion, body aches. On initial evaluation patient is hemodynamically stable, afebrile, GCS 15, cardiac exam benign, lungs clear bilaterally with no adventitious sounds, good air movement throughout and saturating well on room air. Differential diagnosis includes but is not limited to viral syndrome including COVID, influenza, other virus, I also considered the possibility of postviral cough, bronchitis, pneumonia. I have lower suspicion for pneumonia since patient is afebrile and has only been ill for the last 3 days. Patient reports they get points for missing work unless it is COVID or flu so COVID and flu test has been ordered. Additionally two-view chest x-ray was ordered to assess the lung parenchyma. Patient has persistent dry cough while in the ER so lidocaine nebulizer was administered for comfort. Patient handed off to Dr. Iraheta in stable condition pending studies. <Mauri Iraheta MD - Last Filed: 10/06/24 13:30> Boy Inquiry Pt receiving controlled substance: Yes Boy was queried for this patient: Yes Risks and benefits of using a controlled substance: were discussed with pt by me Vital Signs: 10/06/24 06:46 10/06/24 07:00 10/06/24 07:31 Temperature 98.6 F Temperature Source Oral Pulse Rate 82 80 Pulse Rate [Right] 85 Respiratory Rate 17 Blood Pressure 125/72 143/74 H Blood Pressure [Right Arm] 153/75 H Blood Pressure Mean [Right Arm] 101 Blood Pressure Source Blood Pressure Source [Right Arm] Automatic Cuff Blood Pressure Position Blood Pressure Position [Right Arm] Sitting 02 Sat by Pulse Oximetry 98 96 98 Oxygen Delivery Method Room Air Room Air Room Air 10/06/24 07:35 10/06/24 07:35 10/06/24 07:35 Temperature Temperature Source Pulse Rate 77 79 Pulse Rate [Right] Respiratory Rate Blood Pressure Blood Pressure [Right Arm] Blood Pressure Mean [Right Arm] Blood Pressure Source Blood Pressure Source [Right Arm] Blood Pressure Position Blood Pressure Position [Right Arm] 02 Sat by Pulse Oximetry 98 Oxygen Delivery Method Room Air 10/06/24 08:00 10/06/24 08:30 10/06/24 08:47 Temperature 98.7 F Temperature Source Oral Pulse Rate 73 72 72 Pulse Rate [Right] Respiratory Rate 17 Blood Pressure 119/63 99/50 L 99/50 L Blood Pressure [Right Arm] Blood Pressure Mean [Right Arm] Blood Pressure Source Automatic Cuff Blood Pressure Source [Right Arm] Blood Pressure Position Sitting Blood Pressure Position [Right Arm] 02 Sat by Pulse Oximetry 97 95 Oxygen Delivery Method Room Air Room Air Room Air Lab Data Lab Results 10/06/24 06:42: SARS-CoV-2 (PCR) Not detected, Influenza A Untype (PCR) Not detected, Influenza Type B (PCR) Not detected Orders (Tests/Meds): ED MEDICATIONS Discontinued Medications Generic Name Dose Route Start Last Admin Trade Name Freq PRN Reason Stop Dose Admin Dexamethasone 10 mg 10/06/24 08:37 10/06/24 08:43 Dexamethasone 4mg Tablet PO 10/06/24 08:38 10 mg ONCE ONE Administration Lidocaine HCl 5 ml 10/06/24 06:59 10/06/24 07:35 Lidocaine 2% 5ml Pf Vial IH 10/06/24 07:00 5 ml ONCE ONE Administration ORDERS Category Date Time Status CXR 2 view (NOT portable) [XR chest 2V] Stat Exams 10/06/24 06:52 Completed Rapid PCR Covid and Flu A/B Stat Lab 10/06/24 06:42 Completed Medical Decision Narrative: In summary, this 59-year-old female with comorbidities described in the HPI presents to the emergency department today with cough and congestion, body aches. On initial evaluation patient is hemodynamically stable, afebrile, GCS 15, cardiac exam benign, lungs clear bilaterally with no adventitious sounds, good air movement throughout and saturating well on room air. Differential diagnosis includes but is not limited to viral syndrome including COVID, influenza, other virus, I also considered the possibility of postviral cough, bronchitis, pneumonia. I have lower suspicion for pneumonia since patient is afebrile and has only been ill for the last 3 days. Patient reports they get points for missing work unless it is COVID or flu so COVID and flu test has been ordered. Additionally two-view chest x-ray was ordered to assess the lung parenchyma. Patient has persistent dry cough while in the ER so lidocaine nebulizer was administered for comfort. Patient handed off to Dr. Iraheta in stable condition pending studies. Mauri Iraheta MD LLUVIA: I assumed care of this patient from the previous emergency medicine physician. COVID and flu testing is negative, patient elected to be discharged prior to x-ray radiology report however this reveals no acute processes. On my independent interpretation I visualize no acute infectious processes. Patient reports improvement of symptoms upon repeat evaluation. Diagnosis at this time most consistent with bronchitis. Patient will follow-up with a primary care physician. Critical Care <Anjelica Iverson MD - Last Filed: 10/06/24 07:00> Critical Care Time Critical Care Time: No
[2024-10-06 06:56] LABS: Coronavirus 19, PCR Not Detected (NotDetected); Influenza A, PCR Not Detected (NotDetected); Influenza B, PCR Not Detected (NotDetected)
--- NOTE | 2024-10-06 07:27 | PC.NURSE ---
Respiratory at bedside.
[2024-10-06] MEDS: LIDOCAINE 2% 5ML PF VIAL 5 ML IH (07:35)
--- NOTE | 2024-10-06 08:07 | PC.NURSE ---
TRN called rad to check on status of pts scan, coal grader states scan is locked
[2024-10-06] MEDS: DEXAMETHASONE 4MG TABLET 10 MG PO (08:43)
== END 2024-10-06 08:52 | disposition home or self-care (01) ==
PROVIDERS: Emergency Medicine; Emergency Provider Emergency Medicine; PCP Student in an Organized Health Care Education/Training Program
DX: J06.9 Acute upper respiratory infection, unspecified (principal)
CPT/HCPCS: 71046; 87636; 99283; J2003; J8540

== ENCOUNTER 2025-02-27 13:30 | Outpatient (CLI) | payer OTHER, SELFPAY ==
--- NOTE | 2025-02-27 13:35 | MR_ITS ---
FINAL REPORT TECHNIQUE: Multiplanar MR without contrast CLINICAL HISTORY: LUMBAR DISC HERNINATION PULLED AT WORK ON 01/25/25 FINDINGS: Sagittal images show normal vertebral height. Alignment is normal. Marrow signal pattern is unremarkable. L1-2: Unremarkable L2-3: Unremarkable L3-4: Unremarkable L4-5: Mild annular disc bulge. Moderate facet arthropathy and mild central canal stenosis. L5-S1: Unremarkable IMPRESSION: Degenerative disc changes limited to the L4-5 level. Reviewed, Interpreted and Dictated by Citlaly Mai MD Transcribed by Johanne Renteria Authenticated and [facility]
--- OUTSIDE RECORDS SUMMARY | 2025-02-27 13:49 | XMS_ITS | Continuity of Care Document ---
Author Organization [place] [facility] [place] & [place], [facility] Address [address] [place] [address] Care Team Providers Care Dairy Scientist Name Role Phone MER REYNOSO Primary Care Provider [phone] RENE CH Family Counselor RENE CH Family Counselor [phone] Assessment No assessment recorded. Plan of Treatment Reminders Order Date Submit Date Provider Last Modified By Organization Details Last Modified Time Details Appointments ORT EST 15 2024 08:45A Patricia Ford MD Not available Not available Not available ORT EST 15 2024 09:00A Patricia Ford MD Not available Not available Not available Lab None recorded. Referral None recorded. Procedures None recorded. Surgeries None recorded. Imaging MRI, lumbar spine, w/o contrast 2024 025 [email or web address] Not available 02/01/2025 13:44:03 Medication Orders None recorded. Patient TargetsNo targets recorded. Patient InstructionsNo instructions recorded. Reason for Referral None Reported. Results Created Date Observation Date Name Description Value Unit Range Abnormal Flag Note LastModifiedBy Organization Detail LastModifiedTime 02/02/20 25 XR, lumba r spine No observ ation record ed. [email or web address] Not Available 2024 09:23:25 Result Notes None recorded. Problems Name Problem SNOMED Code Status Onset Date Resolution Date Notes Provider Name and Address Organization Details Recorded Time Gastropares is due to type 2 diabetes mellitus 280093529 Active 2022 Jarod Wilhelm MD [address] [place] [address],[address], [place], [address], [place] [facility] [place] & [place] 3 08:08:48 Gastroesoph ageal reflux disease without esophagitis 224678077 Active 2022 Jarod Wilhelm MD [address] [facility],[address], [place], [address], [place] [facility] [place] & [place] 3 08:17:11 Trigger finger of right hand [id number] 9101 Active 2022 Mary del rosario, [place] - [facility] [place] & [place] 3 10:38:32 Trigger finger of left hand [id number] 9107 Active 2022 Mary Link null, [place] - [facility] [place] & [place] 3 10:38:53 Problem Notes None recorded. Procedures Surgical History Date Name Laterality Status Provider Name and Address Organization Details Recorded Time 1 gastric emptying study completed Jose Langegieri [place] [facility] [place] & [place] 09/23/2022 08:04:18 1 EGD/Endoscopy completed Jose Langegieri [place] [facility] [place] & [place] 09/23/2022 08:03:52 1 Colonoscopy completed Jose Kofi [place] [facility] [place] & [place] 09/23/2022 08:03:41 1 US scan of upper abdomen completed Jose Kofi [place] [facility] [place] & [place] 09/23/2022 08:04:36 7 Colonoscopy completed Jose Kofi [place] [facility] [place] & [place] 09/23/2022 08:03:27 procedure on hand completed Jose Kofi [place] [facility] & [place] 09/23/2022 07:54:52 Colonoscopy completed Jose Kofi [place] [facility] [place] & [place] 09/23/2022 07:55:03 CT of abdomen and pelvis completed Jose Kofi [place] [facility] [place] & [place] 09/23/2022 08:04:58 Imaging Results None recorded. Procedure Notes None recorded. Medical Equipment None Reported. Allergies Allergen ID Allergen Name Allergen Category Reaction Reaction Severity Criticality Documentation Date Start Date Code Code System Note Provider Name and Address Organization Details Recorded Time 89660 Bactrim medicatio n anaphylax is severe Not available 09/17/2022 28295 9 RxNorm Ban del rosario, JORDEN [facility] & [place] 3 10:43:34 53713 Cipro medicatio n Not available Not available Not available 09/23/202237978 3 RxNorm Jose del rosario, JORDEN [facility] & [place] 3 07:51:12 27853 Keflex medicatio n Not available Not available Not available 09/23/202287729 7 RxNorm Jose del rosario, JORDEN [facility] & [place] 3 07:51:19 30806 Abilify medicatio n Not available Not available Not available 09/23/2022 20610 3 RxNorm Joes del rosario, JORDEN [facility] & [place] 3 07:51:26 Medications Name Sig Start Date Stop Date Status Note LastModified by Organization Details LastModified Time losartan 50 mg tablet TAKE ONE (1) TABLET EVERY DAY BY ORAL ROUTE FOR 90 DAYS. active Not Available Not Available No t Available cyclobenzap rine 10 mg tablet TAKE 1 TABLET BY MOUTH THREE TIMES DAILY active Not Available Not Available No t Available atorvastati n 40 mg tablet TAKE ONE (1) TABLET BY ORAL ROUTE FOR 90 DAYS. 09/03 completed Not Available Not Available Not Available methocarbam ol 500 mg tablet TAKE ONE (1) TABLET BY MOUTH EVERY 8 HOURS NEEDED FOR MUSCLE SPASMS. active Not Available Not Available No t Available terconazole 0.4 % vaginal cream INSERT 1 APPLICATO RFUL VAGINALLY ONCE DAILY DIRECTED FOR 7 DAYS active Not Available Not Available No t Available albuterol sulfate 0.63 mg/3 mL solution for nebulizatio n USE 1 VIAL VIA NEBULIZER EVERY 4 HOURS NEEDED FOR SHORTNESS OF BREATH OR WHEEZING active Not Available Not Available No t Available promethazin e-DM 6.25 mg-15 mg/5 mL oral syrup TAKE 5 MLS BY MOUTH EVERY 6 HOURS NEEDED FOR COUGH active Not Available Not Available No t Available atorvastati n 80 mg tablet TAKE ONE (1) TABLET BY MOUTH EVERY DAY DIRECTED active Not Available Not Available No t Available carvedilol 6.25 mg tablet TAKE ONE (1) TABLET BY MOUTH TWICE DAILY active Not Available Not Available No t Available prednisone 10 mg tablet TAKE ONE (1) TABLET TWICE A DAY BY ORAL ROUTE NEEDED FOR FIVE (5) DAYS. active Not Available Not Available No t Available gabapentin 600 mg tablet TAKE ONE (1) TABLET THREE (3) TIMES A DAY BY ORAL ROUTE FOR 30 DAYS. 09/23 completed Not Available Not Available Not Available doxycycline hyclate 100 mg capsule TAKE 1 CAPSULE BY MOUTH TWICE DAILY FOR 10 DAYS active Not Available Not Available No t Available nabumetone 750 mg tablet TAKE ONE (1) TABLET BY MOUTH TWO (2) TIMES DAILY. active Not Available Not Available No t Available tizanidine 2 mg tablet TAKE ONE (1) TABLET TWICE A DAY BY ORAL ROUTE NEEDED. active Not Available Not Available No t Available clindamycin HCl 300 mg capsule TAKE ONE (1) CAPSULE THREE (3) TIMES A DAY BY ORAL ROUTE FOR 14 DAYS. active Not Available Not Available No t Available azithromyci n 250 mg tablet TAKE TWO (2) TABLETS BY MOUTH TODAY, THEN ONE (1) TABLET DAILY FOR 4 DAYS 01/29 completed Not Available Not Available Not Available ibuprofen 800 mg tablet TAKE ONE (1) TABLET THREE (3) TIMES A DAY BY ORAL ROUTE NEEDED. active Not Available Not Available No t Available tizanidine 4 mg tablet TAKE ONE (1) TABLET BY MOUTH NIGHTLY NEEDED. active Not Available Not Available No t Available bupivacaine HCl 0.5 % (5 mg/mL) injection solution Take 2 mL by injection route. 2024 active Not Available Not Available Not Avai lable prednisone 20 mg tablet TAKE ONE TABLET TWICE DAILY FOR FOUR (4) DAYS, THEN TAKE ONE TABLET ONCE DAILY FOR FOUR (4) DAYS active Not Available Not Available No t Available Lantus U-100 Insulin 100 unit/mL subcutaneou s solution INJECT 140 UNITS SUBCUTANE OUSLY EVERY DAY active Not Available Not Available No t Available hydroxyzine HCl 50 mg tablet TAKE ONE (1) TABLET FOUR (4) TIMES A DAY BY ORAL ROUTE. active Not Available Not Available No t Available aspirin 81 mg tablet,arnulfo yed release TAKE ONE (1) TABLET EVERY DAY BY ORAL ROUTE FOR 90 DAYS. active Not Available Not Available No t Available glimepiride 2 mg tablet TAKE 1 TABLET BY MOUTH EVERY DAY 09/03 completed Not Available Not Available Not Available carvedilol 3.125 mg tablet TAKE TWO (2) TABLETS TWICE A DAY BY ORAL ROUTE. active Not Available Not Available No t Available meloxicam 7.5 mg tablet TAKE 1 TABLET BY MOUTH EVERY DAY FOR 30 DAYS 09/03 completed Not Available Not Available Not Available prednisolon e acetate 1 % eye drops,suspe nsion INSTILL 1 DROP INTO LEFT EYE 4 TIMES DAILY FOR 7 DAYS active Not Available Not Available No t Available Kenalog 10 mg/mL suspension for injection Take 20 mg by injection route. 2024 active Not Available Not Available Not Avai lable benzonatate 100 mg capsule TAKE ONE (1) CAPSULE THREE (3) TIMES A DAY BY ORAL ROUTE NEEDED FOR 7 DAYS. active Not Available Not Available No t Available triamcinolo ne acetonide 40 mg/mL suspension for injection Take 1 mL by injection route. 2024 active Not Available Not Available Not Avai lable pantoprazol e 40 mg tablet,arnulfo yed release TAKE ONE (1) TABLET BY MOUTH EVERY DAY active Not Available Not Available No t Available nystatin 100,000 unit/gram topical cream APPLY TO AFFECTED AREA TWICE A DAY FOR 7 DAYS active Not Available Not Available No t Available glimepiride 4 mg tablet TAKE ONE (1) TABLET EVERY DAY BY ORAL ROUTE FOR 30 DAYS. active Not Available Not Available No t Available losartan 25 mg tablet TAKE ONE (1) TABLET BY MOUTH EVERY DAY active Not Available Not Available No t Available brimonidine 0.2 % eye drops INSTILL ONE (1) DROP INTO EACH EYE TWICE DAILY active Not Available Not Available No t Available gabapentin 300 mg capsule TAKE 1 CAPSULE BY MOUTH TWICE DAILY 09/03 completed Not Available Not Available Not Available aspirin 81 mg chewable tablet TAKE 1 TABLET EVERY DAY active Not Available Not Available No t Available diclofenac sodium 75 mg tablet,arnulfo yed release TAKE ONE (1) TABLET BY MOUTH TWICE DAILY active Not Available Not Available No t Available montelukast 10 mg tablet TAKE 1 TABLET BY MOUTH EVERY DAY FOR 90 DAYS 09/03 completed Not Available Not Available Not Available mupirocin 2 % topical ointment APPLY OINTMENT TOPICALLY TO AFFECTED AREA TWICE DAILY FOR 5 DAYS active Not Available Not Available No t Available ergocalcife rol (vitamin D2) 1,250 mcg (50,000 unit) capsule TAKE ONE (1) CAPSULE BY MOUTH EVERY WEEK active Not Available Not Available No t Available oxycodone-a cetaminophe n 7.5 mg-325 mg tablet TAKE 1 TABLET BY MOUTH EVERY 6 HOURS NEEDED FOR 3 DAYS active Not Available Not Available No t Available methylpredn isolone 4 mg tablets in a dose pack TAKE DIRECTED FOR 6 DAYS active Not Available Not Available No t Available albuterol sulfate HFA 90 mcg/actuati on aerosol inhaler INHALE TWO (2) PUFFS EVERY FOUR (4) HOURS BY INHALATIO N ROUTE NEEDED. active Not Available Not Available No t Available dexamethaso ne 0.5 mg tablet TAKE 2 TABLETS BY MOUTH BETWEEN 11PM & MIDNIGHT WITH WATER ONLY. THEN THE FOLLOWING MORNING, MUST HAVE LABS DRAWN AT 8AM. active Not Available Not Available No t Available bromphenira mine-pseudo ephedrine-D M 2 mg-30 mg-10 mg/5 mL oral syrup TAKE 10 ML EVERY FOUR (4) HOURS BY ORAL ROUTE NEEDED. active Not Available Not Available No t Available doxycycline hyclate 100 mg tablet TAKE 1 TABLET BY MOUTH TWICE DAILY FOR 10 DAYS active Not Available Not Available No t Available dicyclomine 10 mg capsule TAKE ONE (1) CAPSULE THREE (3) TIMES A DAY BY ORAL ROUTE NEEDED FOR 90 DAYS. active Not Available Not Available No t Available amoxicillin 875 mg-potassiu m clavulanate 125 mg tablet TAKE 1 TABLET EVERY 12 HOURS FOR 10 DAYS 09/03 completed Not Available Not Available Not Available insulin lispro (U-100) 100 unit/mL subcutaneou s pen INJECT SUBCUTANE OUSLY PER SLIDING SCALE DIRECTED (MAX DOSE = 50 UNITS/DAY ) active Not Available Not Available No t Available bupivacaine (PF) 0.25 % (2.5 mg/mL) injection solution Take 1 mg by injection route. 2022 active Not Available Not Available Not Avai lable Premarin 0.625 mg/gram vaginal cream INSERT ONE (1) G EVERY 72 HOURS BY VAGINAL ROUTE AT BEDTIME FOR 90 DAYS. active Not Available Not Available No t Available Fiber Therapy (methylcell ulose) 500 mg tablet TAKE TWO (2) TABLET BY MOUTH ONCE A DAY 09/03 completed Not Available Not Available Not Available Spiriva with HandiHaler 18 mcg and inhalation capsules INHALE ONE (1) CAPSULE EVERY DAY BY INHALATIO N ROUTE. active Not Available Not Available No t Available BD Ultra-Fine Short Pen Needle 31 gauge x 5/16 USE TWICE DAILY DIRECTED active Not Available Not Available No t Available calcium 600 mg (as carbonate)- vitamin D3 10 mcg (400 unit) tablet TAKE ONE (1) TABLET BY MOUTH TWICE DAILY 09/03 completed Not Available Not Available Not Available Symbicort 160 mcg-4.5 mcg/actuati on HFA aerosol inhaler INHALE 2 PUFFS BY MOUTH TWICE DAILY FOR 60 DAYS active Not Available Not Available No t Available FeroSul 325 mg (65 mg iron) tablet TAKE ONE (1) TABLET BY MOUTH ONCE A DAY 09/03 completed Not Available Not Available Not Available Lantus Solostar U-100 Insulin 100 unit/mL (3 mL) subcutaneou s pen INJECT 55 UNITS SUBCUTANE OUSLY EACH MORNING AND IN THE EVENING -- 12 HOURS APART active Not Available Not Available No t Available diclofenac 1 % topical gel active Not Available Not Available Not Available butalbital- acetaminoph en-caffeine 50 mg-300 mg-40 mg capsule TAKE 1 CAPSULE BY MOUTH EVERY 6 HOURS FOR 3 DAYS active Not Available Not Available No t Available Dulera 100 mcg-5 mcg/actuati on HFA aerosol inhaler INHALE TWO (2) PUFFS TWICE A DAY BY INHALATIO N ROUTE. active Not Available Not Available No t Available Viibryd 20 mg tablet TAKE 2 TABLETS BY MOUTH EVERY DAY WITH FOOD 09/03 completed Not Available Not Available Not Available TRUEplus Insulin 1 mL 31 gauge x 5/16 syringe USE TO INJECT INSULIN ONCE DAILY active Not Available Not Available No t Available guaifenesin ER 600 mg tablet, extended release 12 hr TAKE ONE (1) TABLET EVERY 12 HOURS BY ORAL ROUTE NEEDED FOR 7 DAYS. active Not Available Not Available No t Available Jardiance 25 mg tablet TAKE ONE (1) TABLET BY MOUTH EVERY DAY active Not Available Not Available No t Available Ozempic 0.25 mg or 0.5 mg (2 mg/1.5 mL) subcutaneou s pen injector INJECT 0.25MG ONCE WEEKLY SUBCUTANE OUSLY FOR 4 WEEKS DIRECTED active Not Available Not Available No t Available Arpita Max U-300 SoloStar 300 unit/mL (3 mL) subcutaneou s insulin pen INJECT 135 UNITS SUBCUTANE OUSLY EVERY DAY 09/23 completed Not Available Not Available Not Available Dexcom G6 Transmitter device DIRECTED CHANGING EVERY 90 DAYS active Not Available Not Available No t Available Ubrelvy 100 mg tablet PLEASE SEE ATTACHED FOR DETAILED DIRECTION S active Not Available Not Available No t Available Ajovy 225 mg/1.5 mL subcutaneou s auto-inject or INJECT 225 MG UNDER THE SKIN EVERY 28 DAYS active Not Available Not Available No t Available Ozempic 1 mg/dose (4 mg/3 mL) subcutaneou s pen injector SUBCUTANE OUS (INJECT UNDER THE SKIN) ONE (1) MG EVERY 7 DAYS. active Not Available Not Available No t Available Dexcom G7 Sensor device USE DIRECTED PER 10 DAYS active Not Available Not Available No t Available Ozempic 0.25 mg or 0.5 mg (2 mg/3 mL) subcutaneou s pen injector INJECT 0.5 MG SUBCUTANE OUSLY ONCE A WEEK active Not Available Not Available No t Available Vitals None Recorded Social History Question Answer Notes LastModified by Organizat ion Details LastModified Time Tobacco Smoking Status Never [facility] [place] 08/31/2022 10:31:40 Do You Have An Advance Directive? No Information not available 09/17/2022 Are You Blind Or Do You Have Difficulty Seeing? No Information not available 09/17/2022 What Is Your Level Of Caffeine Consumption? Moderate [email or web address] Information not available 10/20/2022 What Type Of Diet Are You Following? REGULAR API-13 Information not available 10/20/2022 What Was The Date Of Your Most Recent Tobacco Screening? 09/03/2022 Information not available 09/17/2022 Are You Passively Exposed To Smoke? No Information not available 09/17/2022 How Much Tobacco Do You Smoke? No Information not available 09/17/2022 Sex: Female Functional Status Question Answer Note LastModified by Organizat ion Details LastModified Time Do you use any illicit or recreational drugs? No Information not available 09/17/2022 What is your level of alcohol consumption? None Information not available 09/23/2022 What is your exercise level? Occasional Information not available 09/23/2022 Mental Status Question Answer Note LastModified by Organization D etails LastModified Time Do you feel stressed (tense, restless, nervous, or anxious, or unable to sleep at night)? [id number] Information not available 09/17/2022 Family History Relationship Description Onset Age of this Age Resolved Age Notes LastModified by Organization Details LastModified Time Father Diabetes mellitus [email or web address] Not available 2024 08:28:03 Father Hypertensive disorder [email or web address] Not available 10:31:34 Mother Diabetes mellitus [email or web address] Not available 2024 08:28:03 Mother Heart disease [email or web address] Not available 2022 07:52:30 Mother Severe chronic obstructive pulmonary disease [email or web address] Not available 2024 08:28:03 Maternal Grandmother Hypertensive disorder [email or web address] Not available 2022 07:52:59 Maternal Grandmother Diabetes mellitus [email or web address] Not available 2024 08:28:03 Maternal Grandmother Metastatic malignant neoplasm to breast [email or web address] Not available 2024 08:28:03 Maternal Grandmother Metastatic malignant neoplasm to pancreas [email or web address] Not available 2024 08:28:03 Paternal Grandmother Diabetes mellitus [email or web address] Not available 2024 08:28:03 Medical History Condition Response Coronary Artery Disease N None N Gout N Colon Cancer N Kidney Stones Y Hyperthyroidism N Migraines Y Depression Y COPD N Hypothyroidism N Osteoporosis/Osteopenia N Diverticulitis/Diverticulosis Y Colon Polyps Y Anxiety Disorder Y Diabetes Y Bleeding Disorder N Arthritis Y Seizures/Epilepsy N Tuberculosis N Hyperlipidemia N Cancer N Back Problems Y Stroke N Asthma N Sleep Apnea N GERD/Reflux N Hepatitis N Cirrhosis N Liver Disease N Heart Disease Y Headaches Y Hypertension N Kidney Disease N Gynecological History Statement/Question Response Current Control Method Tubal Ligat ion Sexually Active? N Obstetrics History GPAL:G 0 P 0 0 0 0 Immunizations Vaccine Type Date Status Note Provider Nam e and Address Organization Details Recorded Time pneumococcal polysaccharide PPV23 1 completed JORDEN Sosa - [facility] - [place] & [place] 09/23/2022 07:50:56 Pneumococcal conjugate PCV 13 0 completed JORDEN Sosa - [facility] - [place] & [place] 09/23/2022 07:50:56 tetanus toxoid, unspecified formulation 3 completed [facility] Available [facility] 10:01:16 Past Encounters Encounter ID Performer Location Encounter Start Date Encounter Closed Date Diagnosis/Indication Diagnosis SNOMED-CT Code Diagnosis ICD10 Code Diagnosis IMO Codes Diagnosis Note [id number] Riky Ford MD Niurka aldana [address] [address] 02/01/2025 08:47:23 02/01/2025 09:47:24 Lumbar radiculitis 7163713701 4463992 M54.16 7601271 Prolapsed lumbar intervertebral disc 768345662 M51.26 791069 Numbness a nd tingling sensation of skin 2699347598 02 R20.0 R20.2 596405 Health Concerns Section Related Observation LastModified by Organization Detai ls LastModified Time None Recorded Concern Status LastModified by Organization Details LastModified Time None Recorded Payers Encounter Date Sequence Insurance Name Policy Number Policy Kennedy Covered Member ID Kennedy Member ID Guarantor Name 02/01/2025 JONATHAN LYNN [facility] Gaviota Karimi Notes Date Note Type Note Provider Name and Address Organization Details Recorded Time 02/01/2025 text/html ROS as noted in the HPI This is a W/C claim. Pt is here for continued Lower back pain from August 2024. She is having pain across the entire lumbar region with numbness and tingling radiating down left leg. 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
--- OUTSIDE RECORDS SUMMARY | 2025-02-27 13:49 | XMS_ITS | Data Portability ---
Author Organization [facility], MAJESTIC Address [address] [place] [address] Care Team Providers Care Powder Hand Name Role Phone KASH MCGEE Referring Provider MER REYNOSO Primary Care Provider [phone] Assessment Encounter Date Assessment Date Assessment LastModified by Organization Details LastModified Time 10/09/2022 10/09/2022 Assessment: 1. Asthma *PFT (10/09/2022): no restriction, +midflow obstruction, +RYAN response 2. Dyspnea 3. History of Bronchitis 4. History of pleurisy 5. History of Covid 02/2022 6. Second hand smoke exposure 7. History of HTN, hyperlipidemia, DM, papitations 8. Symptoms consistent with LOPEZ: hypersomnia, snoring, IZQUIERDO's, brain fog Plan: 1. RX Dulera 100 mcg 2 puffs BID Instructed to rinse mouth after each use; I personally demonstrated use of the inhaled device during todays visit. *Symbicort not covered by insurance 2. RX Albuterol HFA prn 3. Order HST High suspicion of LOPEZ. I discussed the anatomy and physiology of the disease. I explained common symptoms and exterminator helper effects of the disease. We discussed diagnostic and treatment options as well as realistic expectations with treatment. 4. RTO after HST, sooner if needed PFT The patient underwent pulmonary function testing today to evaluate complaints of dyspnea. Results were discussed with the patient. The patient was sent home with a home sleep test to evaluate complaints of snoring, non restorative sleep, excessive daytime sleepiness, hypersomnia and awakening gasping for breath. The patient was given written instructions after a personal demonstration on how to set up and start the study. Not available 10/09/2022 15:37:28 10/12/2022 10/12/2022 Assessment: 1. Asthma *PFT (10/09/2022): no restriction, +midflow obstruction, +RYAN response 2. Dyspnea 3. History of Bronchitis 4. History of pleurisy 5. History of Covid 02/2022 6. Second hand smoke exposure 7. History of HTN, hyperlipidemia, DM, papitations 8. Symptoms consistent with LOPEZ: hypersomnia, snoring, IZQUIERDO's, brain fog *HST (10/09/2022): mild LOPEZ, AHI 5.6, sleep related hypoxia with a BRANDO of 83%, snoring and tachycardia with a max HR of 107 bpm Plan: 1. Begin Dulera 100 mcg 2 puffs BID Instructed to rinse mouth after each use; I personally demonstrated use of the inhaled device during todays visit. *Symbicort not covered by insurance 2. Begin Albuterol HFA prn 3. Order APAP 4-20 cm H20 (sent to [facility]) *Do not drive or operate heavy machinery if feeling fatigued or sleepy 4. RTO in 1 month for CPAP compliance, sooner if needed Not available 10/13/2022 21:40:15 11/23/2022 11/23/2022 Assessment: 1. Asthma *PFT (10/09/2022): no restriction, +midflow obstruction, +RYAN response 2. Dyspnea 3. History of Bronchitis 4. History of pleurisy 5. History of Covid 02/2022 6. Second hand smoke exposure 7. History of HTN, hyperlipidemia, DM, palpitations 8. Symptoms consistent with LOPEZ: hypersomnia, snoring, IZQUIERDO's, brain fog *HST (10/09/2022): mild LOPEZ, AHI 5.6, sleep related hypoxia with a BRANDO of 83%, snoring and tachycardia with a max HR of 107 bpm Plan: 1. Continue Dulera 100 mcg 2 puffs BID Instructed to rinse mouth after each use *Symbicort not covered by insurance 2. RX Spiriva Handihaler daily 3. Continue Albuterol HFA prn 4. Continue APAP 4-20 cm H20 nightly and prn *Do not drive or operate heavy machinery if feeling fatigued or sleepy 5. Order CXR (sent to [facility]) 6. RTO as scheduled or sooner if needed Not available 11/23/2022 15:21:48 06/12/2024 06/12/2024 Assessment: 1. Asthma *PFT (10/09/2022): no restriction, +midflow obstruction, +RYAN response *PFT(06/12/2024) : no obstruction, no restriction, mildly reduced DLCO/VA, + RYAN response 2. Dyspnea .3 History of Covid 02/2022 4. Second hand smoke exposure 5. History of HTN, hyperlipidemia, DM, palpitations 6. LOPEZ *HST (10/09/2022): mild LOPEZ, AHI 5.6, sleep related hypoxia with a BRANDO of 83%, snoring and tachycardia with a max HR of 107 bpm Plan: 1. Resume Dulera 100 mcg 2 puffs BID Instructed to rinse mouth after each use *Symbicort not covered by insurance; Spiriva caused n/v 2. Continue Albuterol HFA prn 3. Order Overnight Pulse Oximetry while wearing CPAP (sent to [facility]) 4. Change to CPAP 10 cm H20 (sent to [facility]) *Order new mask/head gar Air Touch F20 size small *Do not drive or operate heavy machinery if feeling fatigued or sleepy 5. RTO in 1 month for overnight pulse ox results, sooner if needed The patient underwent pulmonary function/FeNO testing today to evaluate complaints of dyspnea. Results were discussed with the patient. Portions of this note may be dictated using voice recognition software and or use of a director medical affairs. Variances in spelling and vocabulary are possible and unintentional. Not all errors are caught/corrected . Please notify the author if any discrepancies are noted or if the meaning of any statement is not clear. This is a summary discussion with the patient and in no way is intended to be a verbatum summation of everything discussed. We apologize for any inconvenience. Not available 06/12/2024 13:29:13 Plan of Treatment Reminders Order Date Submit Date Provider Last Modified By Organization Details Last Modified Time Details Appointments None recorded. Lab None recorded. Referral None recorded. Procedures noninvasive ear or pulse oximetry by continuous overnight monitoring (PROC) 2024 025 [facility], [address], [place], [address], 5 16:01:15 home sleep testing (PROC) 2022 023 TEMITOPE Dio Aimeshelby DO ([facility]), [address], [place], [address], 3 13:37:44 Surgeries None recorded. Imaging XR, chest, 2 view 2022 023 [email or web address] 6 [facility] (Registration ), [address] , [place], [address], 5 13:57:09 Medication Orders Spiriva with HandiHaler 18 mcg and inhalation capsules 2022 023 [facility] [address] [place], [address], 3 11:15:12 Dulera 100 mcg-5 mcg/actuati on HFA aerosol inhaler 2022 023 [facility] [address] [place], [address], 3 15:37:50 Symbicort 160 mcg-4.5 mcg/actuati on HFA aerosol inhaler 2022 023 [email or web address] 6 [facility] [address] [place], [address], 5 11:34:59 albuterol sulfate HFA 90 mcg/actuati on aerosol inhaler 2022 023 [facility] [address] [place], [address], 3 10:12:33 Patient TargetsNo targets recorded. Patient InstructionsNo instructions recorded. Reason for Referral None Reported. Results Created Date Observation Date Name Description Value Unit Range Abnormal Flag Note LastModifiedBy Organization Detail LastModifiedTime 10/13/19 23 10/09/2022 compl ete PFT w/ post [facility] hodil ator rachel metry * No observ ation record ed. [email or web address] Not Available 2022 09:03:07 10/13/19 23 10/09/2022 home sleep testi ng (PROC ) No observ ation record ed. Dio Renee DO ([facility]) [address], [place], [address], 10/12/2022 13:37:44 10/13/19 23 10/09/2022 home sleep testi ng (PROC ) No observ ation record ed. [email or web address] Dio Renee DO ([facility]) [address], [place], [address], 10/12/2022 13:41:29 08/02/19 24 08/01/2023 CPAP compl iance * No observ ation record ed. [email or web address] Not Available 2023 14:52:43 06/09/19 25 11/23/2022 XR, chest , 2 view No observ ation record ed. [email or web address] [facility] [address] , [place], [address], 06/09/2024 14:00:36 06/14/19 25 06/12/2024 nonin vasiv e ear or pulse oxime try by may samaniegon ight monit oring (PROC ) No observ ation record ed. [email or web address] [facility] [address], [place], [address], 06/15/2024 13:52:18 06/15/19 CPAP compl iance * No observ ation record ed. Not Available 2024 15:23:17 06/30/19 25 06/12/2024 compl ete PFT* No observ ation record ed. [email or web address] Not Available 2024 14:24:41 Result Notes None recorded. Problems Name Problem SNOMED Code Status Onset Date Resolution Date Notes Provider Name and Address Organization Details Recorded Time Reactive airway disease 550584419046 Active 2022 Zarina Gandhi NP [address], [place], [address], [place] - [facility] 3 10:04:46 Obstructive sleep apnea syndrome 53325682 Active 2022 Zarina Gandhi NP [address], [place], [address], [place] - [facility] 3 21:37:37 Hypoxia 436153004 Active 2024 Zarina Gandhi NP [address], [place], [address], [place] - [facility] 5 12:41:08 Problem Notes None recorded. Procedures Surgical History Date Name Laterality Status Provider Name and Address Organization Details Recorded Time 1 procedure on hand completed sy delmy [place] - [facility] 10/09/2022 09:58:23 6 procedure on knee completed sy delmy [place] - [facility] 10/09/2022 09:58:38 5 procedure on knee completed sy delmy [place] - [facility] 10/09/2022 09:58:35 1 ligation of fallopian tube completed sy delmy [place] - [facility] 10/09/2022 09:59:02 4 delivery completed sy delmy [place] - [facility] 10/09/2022 09:58:54 Imaging Results None recorded. Procedure Notes None recorded. Medical Equipment None Reported. Allergies Allergen ID Allergen Name Allergen Category Reaction Reaction Severity Criticality Documentation Date Start Date Code Code System Note Provider Name and Address Organization Details Recorded Time Bactrim medicatio n Not available Not available Not available 10/09/2022 14920 9 RxNorm sy delmy null, [place] - [facility] 3 09:39:12 40926 Keflex medicatio n Not available Not available Not available 10/09/202299534 7 RxNorm sy delmy null, [place] - [facility] 3 09:39:17 Cipro medicatio n Not available Not available Not available 10/09/202298016 3 RxNorm sy delmy null, [place] - [facility] 3 09:39:22 Medications Name Sig Start Date Stop Date Status Note LastModified by Organization Details LastModified Time losartan 50 mg tablet TAKE ONE (1) TABLET EVERY DAY BY ORAL ROUTE FOR 90 DAYS. active Not Available Not Available No t Available cyclobenzap rine 10 mg tablet TAKE ONE (1) TABLET THREE (3) TIMES A DAY BY ORAL ROUTE NEEDED, FOR CAUTION: SEDATING. active Not Available Not Available No t Available atorvastati n 40 mg tablet TAKE ONE (1) TABLET BY ORAL ROUTE FOR 90 DAYS. 06/12 completed Not Available Not Available Not Available methocarbam ol 500 mg tablet TAKE ONE TABLET BY MOUTH THREE (3) TIMES DAILY NEEDED FOR 15 DAYS 06/12 completed Not Available Not Available Not Available terconazole 0.4 % vaginal cream INSERT 1 APPLICATO RFUL VAGINALLY ONCE DAILY DIRECTED FOR 7 DAYS 06/12 completed Not Available Not Available Not Available albuterol sulfate 0.63 mg/3 mL solution for nebulizatio n USE 1 VIAL VIA NEBULIZER EVERY 4 HOURS NEEDED FOR SHORTNESS OF BREATH OR WHEEZING active Not Available Not Available No t Available atorvastati n 80 mg tablet TAKE 1 TABLET BY MOUTH ONCE DAILY active Not Available Not Available No t Available prednisone 10 mg tablet TAKE ONE (1) TABLET TWICE A DAY BY ORAL ROUTE NEEDED FOR FIVE (5) DAYS. 06/12 completed Not Available Not Available Not Available gabapentin 600 mg tablet TAKE ONE (1) TABLET THREE (3) TIMES A DAY BY ORAL ROUTE FOR 30 DAYS. 06/12 completed Not Available Not Available Not Available doxycycline hyclate 100 mg capsule TAKE 1 CAPSULE BY MOUTH TWICE DAILY FOR 10 DAYS 06/12 completed Not Available Not Available Not Available tizanidine 2 mg tablet TAKE 1 TABLET BY MOUTH THREE TIMES A DAY NEEDED FOR 7 DAYS active Not Available Not Available No t Available clindamycin HCl 300 mg capsule TAKE ONE (1) CAPSULE THREE (3) TIMES A DAY BY ORAL ROUTE FOR 14 DAYS. 11/23 completed Not Available Not Available Not Available azithromyci n 250 mg tablet TAKE TWO (2) TABLETS (500 MG) BY ORAL ROUTE ONCE DAILY FOR ONE (1) DAY THEN ONE (1) TABLET (250 MG) BY ORAL ROUTE ONCE DAILY FOR FOUR (4) DAYS 06/12 completed Not Available Not Available Not Available ibuprofen 800 mg tablet TAKE ONE (1) TABLET THREE (3) TIMES A DAY BY ORAL ROUTE NEEDED. 06/12 completed Not Available Not Available Not Available Lantus U-100 Insulin 100 unit/mL subcutaneou s solution INJECT 140 UNITS SUBCUTANE OUSLY EVERY DAY 06/12 completed Not Available Not Available Not Available aspirin 81 mg tablet,arnulfo yed release TAKE ONE (1) TABLET EVERY DAY BY ORAL ROUTE FOR 90 DAYS. active Not Available Not Available No t Available glimepiride 2 mg tablet TAKE 1 TABLET BY MOUTH EVERY DAY 06/12 completed Not Available Not Available Not Available carvedilol 3.125 mg tablet TAKE TWO (2) TABLETS TWICE A DAY BY ORAL ROUTE. active Not Available Not Available No t Available meloxicam 7.5 mg tablet TAKE 1 TABLET BY MOUTH EVERY DAY FOR 30 DAYS 06/12 completed Not Available Not Available Not Available pantoprazol e 40 mg tablet,arnulfo yed release TAKE 1 TABLET BY MOUTH ONCE DAILY active Not Available Not Available No t Available nystatin 100,000 unit/gram topical cream APPLY TO AFFECTED AREA TWICE A DAY FOR 7 DAYS 06/12 completed Not Available Not Available Not Available glimepiride 4 mg tablet TAKE ONE (1) TABLET BY MOUTH TWICE DAILY (BEFORE BREAKFAST AND LAST MEAL OF THE DAY) 06/12 completed Not Available Not Available Not Available losartan 25 mg tablet TAKE ONE (1) TABLET BY MOUTH EVERY DAY active Not Available Not Available No t Available gabapentin 300 mg capsule TAKE 1 CAPSULE BY MOUTH TWICE DAILY 06/12 completed Not Available Not Available Not Available aspirin 81 mg chewable tablet TAKE 1 TABLET EVERY DAY 06/12 completed Not Available Not Available Not Available diclofenac sodium 75 mg tablet,arnulfo yed release TAKE ONE (1) TABLET BY MOUTH TWO (2) TIMES DAILY. active Not Available Not Available No t Available montelukast 10 mg tablet TAKE 1 TABLET BY MOUTH EVERY DAY FOR 90 DAYS 06/12 completed Not Available Not Available Not Available mupirocin 2 % topical ointment APPLY OINTMENT TOPICALLY TO AFFECTED AREA TWICE DAILY FOR 5 DAYS 06/12 completed Not Available Not Available Not Available oxycodone-a cetaminophe n 7.5 mg-325 mg tablet TAKE 1 TABLET BY MOUTH EVERY 6 HOURS NEEDED FOR 3 DAYS active Not Available Not Available No t Available methylpredn isolone 4 mg tablets in a dose pack TAKE DIRECTED FOR 6 DAYS 11/23 completed Not Available Not Available Not Available albuterol sulfate HFA 90 mcg/actuati on aerosol inhaler INHALE TWO (2) PUFFS EVERY FOUR (4) HOURS BY INHALATIO N ROUTE NEEDED. active Not Available Not Available No t Available doxycycline hyclate 100 mg tablet TAKE 1 TABLET BY MOUTH TWICE DAILY FOR 10 DAYS 06/12 completed Not Available Not Available Not Available dicyclomine 10 mg capsule TAKE ONE (1) CAPSULE THREE (3) TIMES A DAY BY ORAL ROUTE NEEDED FOR 90 DAYS. 06/12 completed Not Available Not Available Not Available amoxicillin 875 mg-potassiu m clavulanate 125 mg tablet TAKE 1 TABLET EVERY 12 HOURS FOR 10 DAYS 11/23 completed Not Available Not Available Not Available Fiber Therapy (methylcell ulose) 500 mg tablet TAKE TWO (2) TABLET BY MOUTH ONCE A DAY 06/12 completed Not Available Not Available Not Available Spiriva with HandiHaler 18 mcg and inhalation capsules INHALE ONE (1) CAPSULE EVERY DAY BY INHALATIO N ROUTE. active Not Available Not Available No t Available calcium 600 mg (as carbonate)- vitamin D3 10 mcg (400 unit) tablet TAKE ONE (1) TABLET BY MOUTH TWICE DAILY 06/12 completed Not Available Not Available Not Available Symbicort 160 mcg-4.5 mcg/actuati on HFA aerosol inhaler INHALE 2 PUFFS BY MOUTH TWICE DAILY FOR 60 DAYS 06/12 completed Not Available Not Available Not Available FeroSul 325 mg (65 mg iron) tablet TAKE ONE (1) TABLET BY MOUTH ONCE A DAY 06/12 completed Not Available Not Available Not Available Lantus Solostar U-100 Insulin 100 unit/mL (3 mL) subcutaneou s pen INJECT 110 UNITS EVERY DAY BY SUBCUTANE OUS ROUTE AT BEDTIME FOR 30 DAYS. active Not Available Not Available No t Available Humalog KwikPen (U-100) Insulin 100 unit/mL subcutaneou s USE DIRECTED, FOLLOW SLIDING SCALE. MAX OF 50 UNITS DAILY. active Not Available Not Available No t Available diclofenac 1 % topical gel 06/12 completed Not Available Not Available Not Available butalbital- [...] TABLETS BY MOUTH EVERY DAY WITH FOOD 06/12 completed Not Available Not Available Not Available TRUEplus Insulin 1 mL 31 gauge x 5/16 syringe USE TO INJECT INSULIN ONCE DAILY active Not Available Not Available No t Available Jardiance 25 mg tablet TAKE ONE (1) TABLET EVERY DAY BY ORAL ROUTE FOR 30 DAYS. active Not Available Not Available No t Available Ozempic 0.25 mg or 0.5 mg (2 mg/1.5 mL) subcutaneou s pen injector INJECT 0.25MG ONCE WEEKLY SUBCUTANE OUSLY FOR 4 WEEKS DIRECTED 06/12 completed Not Available Not Available Not Available Toujeo Max U-300 SoloStar 300 unit/mL (3 mL) subcutaneou s insulin pen INJECT 135 UNITS SUBCUTANE OUSLY EVERY DAY 06/12 completed Not Available Not Available Not Available Dexcom G6 Transmitter device DIRECTED CHANGING EVERY 90 DAYS active Not Available Not Available No t Available Ubrelvy 100 mg tablet PLEASE SEE ATTACHED FOR DETAILED DIRECTION S 06/12 completed Not Available Not Available Not Available Nurtec ODT 75 mg disintegrat ing tablet active Not Available Not Available N ot Available Ajovy 225 mg/1.5 mL subcutaneou s auto-inject or INJECT 225 MG UNDER THE SKIN EVERY 28 DAYS 06/12 completed Not Available Not Available Not Available Ozempic 1 mg/dose (4 mg/3 mL) subcutaneou s pen injector SUBCUTANE OUS (INJECT UNDER THE SKIN) ONE (1) MG EVERY 7 DAYS. 06/12 completed Not Available Not Available Not Available Qulipta 60 mg tablet TAKE 1 TABLET BY MOUTH ONCE DAILY active Not Available Not Available No t Available Dexcom G7 Sensor device DIRECTED active Not Available Not Available No t Available Ozempic 0.25 mg or 0.5 mg (2 mg/3 mL) subcutaneou s pen injector INJECT 0.5 MG SUBCUTANE OUSLY ONCE A WEEK 06/12 completed Not Available Not Available Not Available Vitals Date Recorded Body weight Oxygen saturation Oxygen saturation in Arterial blood by Pulse oximetry Heart rate Respiratory rate Body temperature Body mass index (BMI) Body height Systolic And Diastolic Provider Name and Address Organization Details Last Updated DateTime 5 19735.7 2 g 98 % 98 % 83 /min 20 /min 97.8 [degF] 32.5 kg/m2 157.48 cm 124/72 mm[Hg] rk lugo [facility] 5 11:31:23 Date Recorded Body weight Body mass index (BMI) Body height Oxygen saturation Oxygen saturation in Arterial blood by Pulse oximetry Heart rate Respiratory rate Systolic And Diastolic Provider Name and Address Organization Details Last Updated DateTime 3 47190.8 9 g 31.5 kg/m2 157.48 cm 99 % 99 % 83 /min 18 /min 126/78 mm[Hg] sy delmy [place] [facility] 3 09:38:42 Date Recorded Body height Provider Name an d Address Organization Details Last Updated DateTime 10/12/2022 157.48 cm sycox walnut lawne [facility] 10/12/2022 13:09:53 Date Recorded Body height Oxygen saturation Oxygen saturation in Arterial blood by Pulse oximetry Heart rate Respiratory rate Systolic And Diastolic Provider Name and Address Organization Details Last Updated DateTime 3 157.48 cm 99 % 99 % 72 /min 18 /min 134/78 mm[Hg] sy brock [place] - [facility] 10:48:45 Social History Question Answer Notes LastModified by Organization Details LastModified Time Tobacco Smoking Status Never Smoker sy brock null, [place] - [facility] 10/09/2022 09:57:40 Do You Have An Advance Directive? No [email or web address] Information not available 06/12/2024 Is Your Home Air Conditioned? Yes [email or web address] Information not available 06/12/2024 Are You Blind Or Do You Have Difficulty Seeing? No [email or web address] Information not available 10/09/2022 In The 14 Days Before Symptom Onset, Have You Had Close Contact With A Laboratory-confi rmed COVID-19 While That Case Was Ill? No [email or web address] Information not available 10/09/2022 In The 14 Days Before Symptom Onset, Have You Had Close Contact With A Person Who Is Under Investigation For COVID-19 While That Person Was Ill? No [email or web address] Information not available 10/09/2022 Have You Been To An Area Known To Be High Risk For COVID-19? No [email or web address] Information not available 10/09/2022 Are You Deaf Or Do You Have Serious Difficulty Hearing? No [email or web address] Information not available 10/09/2022 Where Do You Live? SingleLevelHouse [email or web address] Information not available 06/12/2024 Do You Have A Medical Power Of Shipping Receiving Manager? No [email or web address] Information not available 06/12/2024 What Was The Date Of Your Most Recent Tobacco Screening? 06/12/2024 Information not available 06/12/2024 Do You Have Any Pets? Yes DOGS AND CATS [email or web address] Information not available 10/09/2022 What Is Your Relationship Status? Single [email or web address] Information not available 10/09/2022 Are There Any Smokers In Your House? Yes Smokes Outside Information not available 06/12/2024 Has Tobacco Cessation Counseling Been Provided? No [email or web address] Information not available 06/12/2024 Have You Recently Traveled Abroad? No [email or web address] Information not available 10/09/2022 Are You Currently In School? No [email or web address] Information not available 10/09/2022 Sex: Unknown Functional Status Question Answer Note LastModified by Organization D etails LastModified Time Do you or have you ever used any other forms of tobacco or nicotine? No [email or web address] Information not available 10/09/2022 Are you currently employed? Yes Information not available 10/09/2022 Do you have difficulty doing errands alone? No [email or web address] Information not available 10/09/2022 What is your occupation? [employer] [email or web address] Information not available 06/12/2024 Mental Status Question Answer Note LastModified by Organization D etails LastModified Time Do you have difficulty concentrating, remembering or making decisions? No [email or web address] Information no t available 10/09/2022 Family History Relationship Description Onset Age of this Age Resolved Age Notes LastModified by Organization Details LastModified Time Father Sleep apnea [email or web address] Not david ilable 10/09/2022 09:55:34 Father Environmenta l allergy [email or web address] Not available 06/2022 09:56:06 Sister Sleep apnea [email or web address] Not david ilable 10/09/2022 09:55:34 Brother Sleep apnea [email or web address] Not av ailable 10/09/2022 09:55:34 Paternal Grandfather Sleep apnea [email or web address] Not availabl e 10/09/2022 09:55:34 Paternal Grandfather Family history of malignant neoplasm [email or web address] Not available 06/2022 09:56:24 Paternal Grandfather Heart disease [email or web address] Not available 06/2022 09:57:01 Maternal Grandmother Restless legs syndrome [email or web address] Not available 06/2022 09:55:46 Maternal Grandmother Environmenta l allergy [email or web address] Not available 06/2022 09:56:06 Maternal Grandmother Family history of malignant neoplasm [email or web address] Not available 06/2022 09:56:24 Maternal Grandmother Heart disease [email or web address] Not available 06/2022 09:57:01 Mother Chronic obstructive pulmonary disease Not available 06/2022 09:56:37 Mother Heart disease [email or web address] Not available 06/2022 09:57:01 Medical History No medical history recorded. Gynecological HistoryNo gynecological history recorded. Obstetrics History GPAL:G 0 P 0 0 0 0 Past Encounters Encounter ID Performer Location Encounter Start Date Encounter Closed Date Diagnosis/Indication Diagnosis SNOMED-CT Code Diagnosis ICD10 Code Diagnosis IMO Codes Diagnosis Note [id number] Zarina Gandhi NP [address] [facility] [address] [place] [address] 0 10/09/2022 08:59:21 10/09/2022 10:37:08 Reactive airway disease 2015411435 06 J45.909 Asthma 133714715 J45.90 9 Dyspnea 720304267 R06.00 History of bronchitis 27 9536053 Z87.09 Pleurisy 423043185 R09.1 History of SARS-CoV-2 29 99188101 40235560 Z86.16 History of exposure to second hand smoke 768796864 Z77.22 Hypersomnia 81370762 G47 .10 [id number] Zarina Gandhi NP [address] [facility] [address] [place], [place] [address] 10/12/2022 13:09:26 10/14/2022 08:21:27 Reactive airway disease 9998290869 06 J45.909 Asthma 493216551 J45.90 9 Dyspnea 292343509 R06.00 History of bronchitis 27 0072890 Z87.09 Pleurisy 621712984 R09.1 History of SARS-CoV-2 29 22845591 70355788 Z86.16 History of exposure to second hand smoke 478494700 Z77.22 Hypersomnia 86985436 G47 .10 Obstructiv e sleep apnea syndrome 36524149 G47.33 [id number] Zarina Gandhi NP [address] [facility] [address] [place] [address] 0 11/23/2022 10:35:28 11/23/2022 11:31:34 Obstructive sleep apnea syndrome 31302469 G47.33 Reactive a irway disease 8639360066 06 J45.909 Asthma 487856213 J45.90 9 Dyspnea 708137523 R06.00 History of bronchitis 27 3548968 Z87.09 Pleurisy 601714808 R09.1 History of SARS-CoV-2 29 12251606 89068976 Z86.16 History of exposure to second hand smoke 655353651 Z77.22 Hypersomnia 12502746 G47 .10 [id number] Fabio Bee [facility] [address] [place] [address] [address] [place] [address] 06/12/2024 11:12:34 06/12/2024 12:28:06 Obstructive sleep apnea syndrome 85366187 G47.33 Reactive a irway disease 2977043400 06 J45.909 Asthma 087697681 J45.90 9 Dyspnea 964592716 R06.00 History of bronchitis 27 8624950 Z87.09 Pleurisy 907810024 R09.1 History of SARS-CoV-2 29 38119398 31075679 Z86.16 History of exposure to second hand smoke 565338425 Z77.22 Hypersomnia 12408410 G47 .10 Hypoxia 089084815 R09.02 Health Concerns Section Related Observation LastModified by Organization Detai ls LastModified Time None Recorded Concern Status LastModified by Organization Details LastModified Time None Recorded Advance Directives Directive N: Payers Insurance Date Sequence Insurance Name Policy Number Policy Kennedy Covered Member ID Kennedy Member ID Guarantor Name 07/08/2024 2 [facility] (MEDICAID HMO) Gaviota Karimi [id number] Gaviota Karimi 07/08/2024 1 [place] [id number] Gaviota Karimi [id number] Gaviota Karimi 06/27/2024 3 [place] [place] FFS/TRADITIO NAL Gaviota Karimi [id number] Gaviota Karimi Notes Date Note Type Note Provider Name and Address Organization Details Recorded Time 10/09/2022 text/html ROS as noted in the HPI This is a 57-year-old female who presents to the office today as a new patient referred by Dr. Campos for the evaluation of sleep apnea.Patient complains of shortness of breath with exertion, history of bronchitis and pleurisy. She has used an albuterol inhaler/nebs and Adviar previously but is currently not using any inhaled therapy. Patient states she had a stress test that showed impaired relaxation of the heart. She states she was told to be evaluated for sleep apnea and if negative she would undergo a cardiac catheterization. She has 2 dogs and 3 cats in the home. She is a lifelong nonsmoker but does have history of secondhand smoke exposure. Denies any occupational or environmental exposures. Family history is positive for COPD and LOPEZ. A focused sleep assessment is positive for snoring, fatigue, hypersomnia, headaches and brain fog.Denies any fever, chills, n/v/d, abdominal pain or lower extremity edema. Zarina Gandhi NP [address], [place], [address], [facility] 10/09/2022 15:37:51 10/12/2022 text/html ROS as noted in the HPI This is a 57 year-old female who presents today via telephone visit to review the results of recent home sleep study completed on 10/09/2022 that revealed mild LOPEZ, AHI 5.6, sleep related hypoxia with a BRANDO of 83%, snoring and tachycardia with a max HR of 107 bpm. Results and proposed treatment plan was discussed with the patient. Zarina Gandhi NP [address], [place], [address], [facility] 10/13/2022 21:41:49 11/23/2022 text/html ROS as noted in the HPI This is a 57-year-old female who presents to the office today for the ongoing management of sleep apnea and asthma. Patient continues to use Dulera 2 puffs twice daily and has not used her albuterol inhaler in the past 3-4 days. She does continue to complain of shortness of breath when walking long distances at work, and occasional chest tightness. Patient has started using her CPAP and notes positive benefits of use as evidenced by improved sleep quality and improved daytime fatigue. A CPAP compliance report was generated for the dates of 10/24/2022 through 11/22/2022 that revealed 24 days 80% compliance greater than 4 hours, 28 out of 30 days 93% overall compliance, AHI 1.4 in median leaks 0.2. No fever, chills, n/v/d, abdominal pain or lower extremity edema. Zarina Gandhi NP [address], [place], [address], [facility] 11/23/2022 15:22:34 06/12/2024 text/html ROS as noted in the HPI This is a 59-year-old female who presents to the office today for the ongoing management of sleep apnea and asthma.Patients last office visit was 11/23/2022. Previous visit cancelled with no reschedule due to moving to [place]. Patient has been back in [place] since . Patient states she was recently seen by her PCP for chest tightness. She was treated with steroids and had lab work. She was told her WBC was elevated. She is waiting on results of repeat testing. She has been referred to Dr. Campos related to her chest tightness. Today the patient complains of chest tightness, shortness of breath and cough with exertional activities. She had previously discontinued use of Dulera and Albuterol. While in [place] she did follow up with [facility]. Patient continues to use her CPAP nightly and notes no improved sleep quality but continues with daytime fatigue. Compliance report is generated for the dates of 05/10/2024 - that revealed 30 days 97% compliance overall, 28 days (93%) compliance greater than 4 hours, AHI 1.2 and median leaks 0.8 L/min. Compliance data was discussed during today's visit. No fever, chills, n/v/d, abdominal pain or lower extremity edema. Zarina Gandhi NP [address], [place], [address], [facility] 06/12/2024 13:29:20 OBGyn Episode No OBEpisode recorded.
--- OUTSIDE RECORDS SUMMARY | 2025-02-27 13:49 | XMS_ITS | Data Portability ---
Author Organization [facility] [place] [facility] Address [address] [place] [address] Care Team Providers Care Newspaper Manager Name Role Phone MARY BETH REYNOSOY Primary Care Provider [phone] RENE CH Station Helper RENE CH Station Helper Assessment No assessment recorded. Plan of Treatment [...] MRI, lumbar spine, w/o contrast 2024 025 [email or web address] Not available 02/01/2025 13:44:03 XR, pelvis 2024 025 [email or web address] [facility], [address] [place] [address] [place], [address], 09/28/2024 11:09:20 XR, lumbar spine 2024 025 [email or web address] [facility], [address] [place] [address] [place], [address], 09/14/2024 09:29:18 XR, pelvis 2024 025 [email or web address] [facility], [address] [place] [address] , [place], [address], 09/14/2024 09:29:18 Medication Orders bupivacai ne HCl 0.5 % (5 mg/mL) injection solution 2024 025 [email or web address] [facility] - [address], [address], 02/21/2025 09:46:21 triamcino lone acetonide 40 mg/mL suspensio n for injection 2024 025 [email or web address] [facility] [place], [address] [place] [address], [address], 02/21/2025 09:46:21 Kenalog 10 mg/mL suspensio n for injection 2024 025 [email or web address] Not available 10/26/2024 14:01:34 bupivacai ne HCl 0.5 % (5 mg/mL) injection solution 2024 025 Not available 10/26/2024 14:01:34 Kenalog 10 mg/mL suspensio n for injection 2024 025 Not available 09/15/2024 07:10:40 bupivacai ne HCl 0.5 % (5 mg/mL) injection solution 2024 025 [email or web address] Not available 09/15/2024 07:10:40 Patient TargetsNo targets recorded. Patient InstructionsNo instructions recorded. Reason for Referral None Reported. Results Created Date Observation Date Name Description Value Unit Range Abnormal Flag Note LastModifiedBy Organization Detail LastModifiedTime 09/15/19 25 XR, lumba r spine No observ ation record ed. TEMITOPE Isaacs [address] , [place], [address], 09/14/2024 08:39:58 09/15/19 25 XR, pelvi s No observ ation record ed. TEMITOPE Isaacs [address] , [place], [address], 09/14/2024 08:39:52 09/29/19 25 XR, pelvi s No observ ation record ed. TEMITOPE Isaacs [address] , [place], [address], 09/28/2024 10:12:47 02/02/20 25 XR, lumba r spine No observ ation record ed. [email or web address] Not Available 2024 09:23:25 Result Notes None recorded. Problems Name Problem SNOMED Code Status Onset Date Resolution Date Notes Provider Name and Address Organization Details Recorded Time Gastropares is due to type 2 diabetes mellitus 023548135 Active 2022 Jarod Wilhelm MD [address] [place] [address],[address], [place], [address], [place] - [facility] [place] [facility] [place] 3 08:08:48 Gastroesoph ageal reflux disease without esophagitis 689360995 Active 2022 Jarod Wilhelm MD [address] [place] [address],[address], [place], [address], [place] [facility] [place] [facility] [place] 3 08:17:11 Trigger finger of right hand 4264064488994 9101 Active 2022 Mary del rosario, [place] [facility] [place] [facility] [place] 3 10:38:32 Trigger finger of left hand 5916892482870 9107 Active 2022 Mary Link null, [place] [facility] [place] [facility] [place] 3 10:38:53 Problem Notes None recorded. Procedures Surgical History Date Name Laterality Status Provider Name and Address Organization Details Recorded Time 1 gastric emptying study completed Jose Jordan [facility] [place] [facility] [place] 09/23/2022 08:04:18 1 EGD/Endoscopy completed Jose SALINAS - [place] [facility] [place] 09/23/2022 08:03:52 1 Colonoscopy completed Jose SALINAS - [place] [facility] [place] 09/23/2022 08:03:41 1 US scan of upper abdomen completed Jose LEONARDO - [facility] - [place] [facility] [place] 09/23/2022 08:04:36 7 Colonoscopy completed Jose Jordan [facility] - [place] [facility] [place] 09/23/2022 08:03:27 procedure on hand completed Jose LEONARDO - [facility] [place] [facility] [place] 09/23/2022 07:54:52 Colonoscopy completed Jose SALINAS - [place] [facility] [place] 09/23/2022 07:55:03 CT of abdomen and pelvis completed Jose Jordan [facility] - [place] [facility] [place] 09/23/2022 08:04:58 Imaging Results None recorded. Procedure Notes None recorded. Medical Equipment None Reported. Allergies Allergen ID Allergen Name Allergen Category Reaction Reaction Severity Criticality Documentation Date Start Date Code Code System Note Provider Name and Address Organization Details Recorded Time 40221 Bactrim medicatio n anaphylax is severe Not available 09/17/2022 93531 9 RxNorm Ban del rosario, [place] - [facility] & [place] 3 10:43:34 86835 Cipro medicatio n Not available Not available Not available 09/23/202232983 3 RxNorm Jose del rosario, JORDEN - [facility] - [place] [facility] [place] 3 07:51:12 74166 Keflex medicatio n Not available Not available Not available 09/23/2022 75096 7 RxNorm Jose del rosario, [place] - [facility] - [place] [facility] [place] 3 07:51:19 68453 Abilify medicatio n Not available Not available Not available 09/23/2022 23341 3 RxNorm Jose del rosario, J[place]EN - [facility] - [place] [facility] [place] 3 07:51:26 Medications Name Sig Start Date [...] Not Available Not Available No t Available Toujeo Max U-300 SoloStar 300 unit/mL [...] Time Tobacco Smoking Status Never Smoker Mamie Rutherford-Victor Makis null, [place] - [facility] [place] [facility] [place] 08/31/2022 10:31:40 Do You Have An Advance [...] anxious, or unable to sleep at night)? [id number] Information not available 09/17/2022 Family History Relationship [...] History Condition Response Coronary Artery Disease N Gout N None N Colon Cancer N Kidney Stones Y [...] PPV23 1 completed JORDEN Sosa - [facility] 09/23/2022 07:50:56 Pneumococcal conjugate PCV 13 0 completed JORDEN Sosa - [facility] 09/23/2022 07:50:56 tetanus toxoid, unspecified formulation 3 completed Not Available [facility] 10/20/[facility] 10:01:16 Past Encounters Encounter ID Performer Location Encounter Start Date Encounter Closed Date Diagnosis/Indication Diagnosis SNOMED-CT Code Diagnosis ICD10 Code Diagnosis IMO Codes Diagnosis Note [id number] Riky Ford MD [facility] [address] [address] 09/03/2022 09:44:06 09/03/2022 10:59:12 Pain of bilateral hands 0274636073 5025977 M79.641 M79.642 Trigger fi nger of left hand 7497826131 8131350 M65.30 Trigger fi nger of right hand 5340354077 5610246 M65.30 [id number] [facility] [address] [address] 09/17/2022 10:10:24 09/17/2022 10:58:52 Pain of bilateral hands 7429360308 2017027 M79.641 M79.642 Trigger fi nger of left hand 9161635808 7740235 M65.30 Trigger fi nger of right hand 2509387206 1199023 M65.30 [id number] Jarod Wilhelm MD [facility] [address] [place] [address],[address] [place] [address] 09/23/2022 07:38:26 09/23/2022 08:13:08 Gastroparesis due to type 2 diabetes mellitus 250664473 E11.43 patient with previously documented gastropare sis related to her diabetes, recently started on Ozempic. The patient was counseled that this medication is associated with worsening gastric delay in emptying, and therefore may be contributi ng to her symptoms. We have discussed that if these symptoms are becoming incapacita ting, or intolerabl e will recommend she discuss with her prescribin g provider whether Ozempic should be continued. We will continue a PPI, this helps to reduce gastric volume as well as reduce acid overall. Gastroesop hageal reflux disease without esophagitis 336190859 K21.9 no true heartburn, continue PPI therapy. Follow-up 6 months [id number] LINA MOCTEZUMA NP [facility] [address] [address] 10/20/2022 09:57:16 10/20/2022 10:41:08 Pain of bilateral hands 8537939727 6317802 M79.641 M79.642 Trigger fi nger of left hand 5573812009 7488203 M65.332 Trigger fi nger of right hand 7998172947 9187662 M65.331 M65.961 [id number] Riky Ford MD [facility] [address] [address] 09/14/2024 07:57:26 09/14/2024 09:02:31 Pain in buttock 752896333 M79.18 809082 Injury of musculoskeletal system 107402579 M71.50 35080533 LEFT HIP [id number] Riky Ford MD [facility] [address] [place], [place] [address] 09/28/2024 09:07:48 09/28/2024 10:23:19 Pain in pelvis 39732318 R10.2 22437 Injury of musculoskeletal system 631720407 M71.50 91396637 LEFT HIP [id number] Riky Ford MD [facility] [address] [place], [place] [address] 10/26/2024 09:07:03 10/26/2024 09:54:34 Injury of musculoskeletal system 419052841 M71.50 73150415 LEFT HIP [id number] Riky Ford MD [facility] [address] [place], [place] [address] 02/01/2025 08:47:23 02/01/2025 09:47:24 Lumbar radiculitis 6589255500 6210998 M54.16 3583939 Prolapsed lumbar intervertebral disc 705728157 M51.26 395674 Numbness a nd tingling sensation of skin 6559354981 02 R20.0 R20.2 991780 [id number] Riky Ford MD [facility] [address] [place] [address] 02/21/2025 08:20:44 02/21/2025 09:26:52 Trochanteric bursitis of left hip 4635413196 57765 M70.62 8817906 Health Concerns Section Related Observation LastModified by Organization Detai ls LastModified Time None Recorded Concern Status LastModified by Organization Details LastModified Time None Recorded Advance Directives Directive N: Payers Insurance Date Sequence Insurance Name Policy Number Policy Kennedy Covered Member ID Kennedy Member ID Guarantor Name 11/26/2021 1 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 Has been ongoing since patient was electrocuted at work on 08.19.2024 causing her to fall on her left hip. Pain is at the trocanteric bursa and radiates around to the buttock. Patient states she can not put any weight on that side due to the pain. E5 JS Riky Ford MD [address] [place] [address],[address], [place], [address], [facility] & [place] 09/15/2024 07:55:11 09/28/2024 text/html This 59 year old female patient presents in the office for follow up post LEFT hip bursa injection on 09.14.24. She reports this improved her pain by 50%. She has some questions about her recent x-ray.CHE1 Riky Ford MD [address] [place] [address],[address], [place], [address], [facility] & [place] 09/28/2024 11:13:18 10/26/2024 text/html This 59 year old female patient presents in the office today for continues left hip pain. She had bursa injection on 09.14.24 that she reported had improved her pain on 09.28.24 by 50%. She states that the pain has returned. She would like a repeat injection. Last note states she will get repeat injection today. CHE5 Riky Ford MD [address] [place] [address],[address], [place], [address], [facility] & [place] 10/27/2024 06:40:15 02/01/2025 text/html ROS as noted in the HPI This is a W/C claim. Pt is here for continued Lower back pain from August 2024. She is having pain across the entire lumbar region with numbness and tingling radiating down left leg. She did go to ER for this on 01/29/2025 here at [facility].W/C claim from August 2024DOO- August/12/2024- left hip bursa inj10/26/2024- Left hip bursa inj01/29/2025- XR L-spine- No acute abnormality of L-spine- MRMCCase worker with pt- [email or web address] Riky Ford MD [address] [place] [address],[address], [place], [address], [facility] - [facility] 02/01/2025 13:44:51 02/21/2025 text/html ROS as noted in the HPI This is a workers compensation claim for left hip from [employer] 08/19/24. C/O lateral soreness. She has had previous injections into left hip bursa that really helped. She would like an injection today. She saw her staff rn last week and was told she had Cushings caused by steroids. Riky Ford MD [address] [place] [address],[address], [place], [address], [place] - [facility] & [place] 02/21/2025 09:21:19 OBGyn Episode No OBEpisode recorded.
--- OUTSIDE RECORDS SUMMARY | 2025-02-27 13:50 | XMS_ITS | Data Portability ---
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 50 mg tablet TAKE 1 TABLET BY MOUTH ONCE DAILY 05/18 completed Not Available Not Available Not Available fluoxetin e 40 mg capsule TAKE ONE (1) CAPSULE BY MOUTH EVERY MORNING DIRECTED TAKE WITH 20MG FOR TOTAL OF 60MG DAILY 07/15 completed Not Available Not Available Not Available cyclobenz aprine 10 mg tablet TAKE ONE (1) TABLET THREE (3) TIMES A DAY BY ORAL ROUTE NEEDED, FOR CAUTION: SEDATING . 11/27 completed Not Available Not Available Not Available amoxicill in 500 mg capsule TAKE ONE (1) CAPSULE TWICE A DAY BY ORAL ROUTE FOR 10 DAYS. 05/23 completed Not Available Not Available Not Available atorvasta tin 40 mg tablet TAKE 2 TABLET BY ORAL ROUTE FOR 90 DAYS. 09/14 completed Not Available Not Available Not Available methocarb vidal 500 mg tablet TAKE ONE (1) TABLET BY MOUTH EVERY 8 HOURS NEEDED FOR MUSCLE SPASMS. 05/18 completed Not Available Not Available Not Available terconazo le 0.4 % vaginal cream INSERT 1 APPLICAT ORFUL VAGINALL Y ONCE DAILY DIRECTED FOR 7 DAYS 10/15 completed Not Available Not Available Not Available albuterol sulfate 0.63 mg/3 mL solution for nebulizat ion USE 1 VIAL VIA NEBULIZE R EVERY 4 HOURS NEEDED FOR SHORTNES S OF BREATH OR WHEEZING 07/15 completed Not Available Not Available Not Available promethaz ine-DM 6.25 mg-15 mg/5 mL oral syrup TAKE 5 MLS BY MOUTH EVERY 6 HOURS NEEDED FOR COUGH 11/27 completed Not Available Not Available Not Available atorvasta tin 80 mg tablet TAKE ONE (1) TABLET BY MOUTH EVERY DAY DIRECTED 2024 active Not Available Not Available Not Avai lable acetamino phen 325 mg tablet Take 2 tablets every 6 hours by oral route as needed for 20 days. 07/15 completed Not Available Not Available Not Available prednison e 10 mg tablet TAKE ONE (1) TABLET TWICE A DAY BY ORAL ROUTE NEEDED FOR FIVE (5) DAYS. 11/27 completed Not Available Not Available Not Available gabapenti n 600 mg tablet TAKE ONE (1) TABLET THREE (3) TIMES A DAY BY ORAL ROUTE FOR 30 DAYS. 09/14 completed Not Available Not Available Not Available doxycycli ne hyclate 100 mg capsule TAKE 1 CAPSULE BY MOUTH TWICE DAILY FOR 10 DAYS 05/18 completed Not Available Not Available Not Available paroxetin e 10 mg tablet TAKE ONE TABLET BY MOUTH ONCE DAILY 08/25 completed Not Available Not Available Not Available nabumeton e 750 mg tablet TAKE ONE (1) TABLET BY MOUTH TWO (2) TIMES DAILY. 05/18 completed Not Available Not Available Not Available tizanidin e 2 mg tablet TAKE ONE (1) TABLET TWICE A DAY BY ORAL ROUTE NEEDED. 05/18 completed Not Available Not Available Not Available clindamyc in HCl 300 mg capsule TAKE ONE (1) CAPSULE THREE (3) TIMES A DAY BY ORAL ROUTE FOR 14 DAYS. 10/28 completed Not Available Not Available Not Available albuterol sulfate 2.5 mg/3 mL (0.083 %) solution for nebulizat ion Inhale 3 mL 3 times a day by nebuliza tion route as needed. 07/15 completed Not Available Not Available Not Available diphenhyd ramine 50 mg capsule Take 1 capsule every 6 hours by oral route as needed. 05/14 completed Not Available Not Available Not Available azithromy yojana 250 mg tablet TAKE TWO (2) TABLETS BY MOUTH TODAY, THEN ONE (1) TABLET DAILY FOR 4 DAYS active Not Available Not Available No t Available ibuprofen 800 mg tablet TAKE ONE (1) TABLET THREE (3) TIMES A DAY BY ORAL ROUTE NEEDED. 05/18 completed Not Available Not Available Not Available tizanidin e 4 mg tablet TAKE ONE (1) TABLET BY MOUTH NIGHTLY NEEDED. 05/18 completed Not Available Not Available Not Available fluconazo le 150 mg tablet TAKE ONE (1) TABLET BY MOUTH AND REPEAT IN 72 HOURS 03/11 completed Not Available Not Available Not Available benzonata te 200 mg capsule TAKE 1 CAPSULE BY MOUTH THREE TIMES DAILY NEEDED FOR COUGH FOR 7 DAYS 05/18 completed Not Available Not Available Not Available metoprolo l succinate ER 50 mg tablet,ex tended release 24 hr Take 1 mg every day by oral route for 30 days. 05/14 completed Not Available Not Available Not Available clarithro mycin 500 mg tablet TAKE ONE (1) TABLET TWICE A DAY BY ORAL ROUTE FOR 7 DAYS. 04/11 completed Not Available Not Available Not Available hydrocodo ne 5 mg-acetam inophen 325 mg tablet TAKE ONE (1) TABLET THREE (3) TIMES A DAY BY ORAL ROUTE NEEDED FOR TWO (2) DAYS. 11/07 completed Not Available Not Available Not Available Celestone Soluspan 6 mg/mL suspensio n for injection Take 1 mL by injectio n route. 12/04 completed Not Available Not Available Not Available ondansetr on HCl 8 mg tablet TAKE ONE (1) TABLET(S ) TWICE A DAY BY ORAL ROUTE NEEDED. 09/20 completed Not Available Not Available Not Available meloxicam 15 mg tablet Take 1 tablet by oral route for 30 days. 05/14 completed Not Available Not Available Not Available FreeStyle Lancchristy 28 gauge 11/30 completed Not Available Not Available Not Available prednison e 20 mg tablet TAKE ONE TABLET TWICE DAILY FOR FOUR (4) DAYS, THEN TAKE ONE TABLET ONCE DAILY FOR FOUR (4) DAYS 11/27 completed Not Available Not Available Not Available clonazepa m 0.5 mg tablet TAKE ONE (1) TABLET(S ) EVERY DAY BY ORAL ROUTE NEEDED. 07/15 completed Not Available Not Available Not Available propranol ol ER 60 mg capsule,2 4 hr,extend ed release take 1 capsule (60 mg) by oral route 1 times per day 01/21 completed Not Available Not Available Not Available Lantus U-100 Insulin 100 unit/mL subcutane ous solution INJECT 140 UNITS SUBCUTAN EOUSLY EVERY DAY 08/04 completed DUPLICAT E Not Available Not Available Not Available promethaz ine 6.25 mg-codein e 10 mg/5 mL syrup TAKE FIVE (5) ML EVERY SIX (6) HOURS BY ORAL ROUTE NEEDED. 06/20 completed Not Available Not Available Not Available penicilli n V potassium 500 mg tablet 08/25 completed Not Available Not Available Not Available hydroxyzi ne HCl 50 mg tablet TAKE ONE (1) TABLET FOUR (4) TIMES A DAY BY ORAL ROUTE. 05/18 completed Not Available Not Available Not Available peg-elect rolyte solution 420 gram oral solution USE INSTRUCT ED BY OFFICE STAFF 02/11 completed Not Available Not Available Not Available aspirin 81 mg tablet,de layed release TAKE ONE (1) TABLET EVERY DAY BY ORAL ROUTE FOR 90 DAYS. 05/18 completed Not Available Not Available Not Available doxycycli ne monohydra te 100 mg tablet Take 1 tablet twice a day by oral route as directed for 7 days. 01/21 completed Not Available Not Available Not Available tramadol 50 mg tablet Take 1 tablet twice a day by oral route as needed for 7 days. 06/06 completed Not Available Not Available Not Available risperido ne 3 mg tablet Take 1 tablet twice a day by oral route for 30 days. 05/11 completed Not Available Not Available Not Available glimepiri de 2 mg tablet TAKE 1 TABLET BY MOUTH EVERY DAY 07/15 completed Not Available Not Available Not Available carvedilo l 3.125 mg tablet TAKE TWO (2) TABLETS TWICE A DAY BY ORAL ROUTE. 2024 active Not Available Not Available Not Avai lable Depo-Medr ol 80 mg/mL suspensio n for injection Take 80 mg by injectio n route. 11/28 completed Not Available Not Available Not Available risperido ne 2 mg tablet Take 1 tablet twice a day by oral route for 30 days. 02/16 completed Not Available Not Available Not Available meloxicam 7.5 mg tablet TAKE 1 TABLET BY MOUTH EVERY DAY FOR 30 DAYS 09/14 completed Not Available Not Available Not Available Fiorinal- Codeine #3 30 mg-50 mg-325 mg-40 mg capsule take 1-2 capsules every 4 hours as needed 10/02 completed Not Available Not Available Not Available prednisol one acetate 1 % eye drops,danisha pension INSTILL 1 DROP INTO LEFT EYE 4 TIMES DAILY FOR 7 DAYS 11/27 completed Not Available Not Available Not Available clarithro mycin ER 500 mg tablet,ex tended release 24 hr Take 1 tablet twice a day by oral route for 7 days. 05/12 completed Not Available Not Available Not Available methocarb vidal 750 mg tablet TAKE ONE (1) TABLET THREE (3) TIMES A DAY BY ORAL ROUTE NEEDED FOR 15 DAYS. 11/07 completed Not Available Not Available Not Available OneTouch Ultra Test strips Take 1 strip twice a day by miscell. route for 25 days. 09/14 completed Not Available Not Available Not Available dexametha sone 1 mg tablet 06/06 completed Not Available Not Available Not Available baclofen 10 mg tablet TAKE ONE (1) TABLET THREE (3) TIMES A DAY BY ORAL ROUTE NEEDED FOR 30 DAYS. 02/11 completed Not Available Not Available Not Available benzonata te 100 mg capsule TAKE ONE (1) CAPSULE THREE (3) TIMES A DAY BY ORAL ROUTE NEEDED FOR 7 DAYS. 11/27 completed Not Available Not Available Not Available hydrocort isone 1 % topical cream APPLY A THIN LAYER TO THE AFFECTED AREA(S) BY TOPICAL ROUTE TWO (2) TIMES PER DAY 07/15 completed Not Available Not Available Not Available doxycycli ne monohydra te 100 mg capsule 01/21 completed Not Available Not Available Not Available gemfibroz il 600 mg tablet TAKE ONE TABLET BY MOUTH TWICE DAILY 01/21 completed Not Available Not Available Not Available paroxetin e 20 mg tablet Take 1 tablet every day by oral route for 30 days. 12/15 completed Not Available Not Available Not Available pantopraz ole 40 mg tablet,de layed release TAKE ONE (1) TABLET BY MOUTH EVERY DAY 2024 active Not Available Not Available Not Avai lable erythromy yojana 5 mg/gram (0.5 %) eye ointment APPLY 1 CM RIBBON INTO THE LOWER CONJUNCT IVAL SAC(S) IN THE AFFECTED EYE(S) BY OPHTHALM IC ROUTE 3 TIMES PER DAY x 7 days 01/20 completed Not Available Not Available Not Available oseltamiv ir 75 mg capsule TAKE 1 CAPSULE BY MOUTH TWICE DAILY FOR 5 DAYS 05/18 completed Not Available Not Available Not Available metformin 1,000 mg tablet TAKE ONE (1) TABLET BY MOUTH TWICE DAILY 02/11 completed Not Available Not Available Not Available neomycin- polymyxin -dexameth 3.5 mg/mL-10, 000 unit/mL-0 .1% eye drops 10/29 completed Not Available Not Available Not Available nystatin 100,000 unit/gram topical cream APPLY TO AFFECTED AREA TWICE A DAY FOR 7 DAYS 07/15 completed Not Available Not Available Not Available clotrimaz ole-betam ethasone 1 %-0.05 % topical cream APPLY TO THE AFFECTED AND SURROUND ING AREAS OF SKIN BY TOPICAL ROUTE 2 TIMES PER DAY IN THE MORNING AND EVENING FOR 2 WEEKS as needed 09/20 completed Not Available Not Available Not Available lisinopri l 10 mg tablet Take 1 tablet every day by oral route for 30 days. 11/02 completed Not Available Not Available Not Available glimepiri de 4 mg tablet TAKE 1 TABLET BY MOUTH TWICE DAILY 05/18 completed Not Available Not Available Not Available losartan 25 mg tablet TAKE ONE (1) TABLET BY MOUTH EVERY DAY 2024 active Not Available Not Available Not Avai lable indometha yojana 50 mg capsule Take 1 capsule twice a day by oral route as directed for 10 days. 06/03 completed Not Available Not Available Not Available gabapenti n 300 mg capsule TAKE 1 CAPSULE BY MOUTH TWICE DAILY 07/15 completed Not Available Not Available Not Available aspirin 81 mg chewable tablet TAKE 1 TABLET EVERY DAY 09/14 completed Not Available Not Available Not Available diclofena c sodium 75 mg tablet,de layed release TAKE ONE (1) TABLET BY MOUTH TWICE DAILY active Not Available Not Available No t Available monteluka st 10 mg tablet TAKE 1 TABLET BY MOUTH EVERY DAY FOR 90 DAYS 09/14 completed Not Available Not Available Not Available mupirocin 2 % topical ointment APPLY OINTMENT TOPICALL Y TO AFFECTED AREA TWICE DAILY FOR 5 DAYS 05/18 completed Not Available Not Available Not Available ergocalci ferol (vitamin D2) 1,250 mcg (50,000 unit) capsule TAKE ONE (1) CAPSULE BY MOUTH EVERY WEEK active Not Available Not Available No t Available ibuprofen 600 mg tablet Take 1 tablet 3 times a day by oral route as needed. 10/02 completed Not Available Not Available Not Available oxycodone -acetamin ophen 7.5 mg-325 mg tablet TAKE 1 TABLET BY MOUTH EVERY 6 HOURS NEEDED FOR 3 DAYS 05/18 completed Not Available Not Available Not Available methylpre dnisolone 4 mg tablets in a dose pack TAKE DIRECTED FOR 6 DAYS 11/05 completed Not Available Not Available Not Available hydrocodo ne 10 mg-chlorp heniramin e 8 mg/5 mL oral susp extend.re l 12hr Take 5 mL every 12 hours by oral route. 06/26 completed Not Available Not Available Not Available albuterol sulfate HFA 90 mcg/actua tion aerosol inhaler INHALE TWO (2) PUFFS EVERY FOUR (4) HOURS BY INHALATI ON ROUTE NEEDED. active Not Available Not Available No t Available paroxetin e 40 mg tablet Take 1 tablet every day by oral route for 30 days. 07/15 completed Not Available Not Available Not Available ketorolac 60 mg/2 mL intramusc ular solution inject 60 mg IM please 05/18 completed Not Available Not Available Not Available dexametha sone 0.5 mg tablet TAKE 2 TABLETS BY MOUTH BETWEEN 11PM & MIDNIGHT WITH WATER ONLY. THEN THE FOLLOWIN G MORNING, MUST HAVE LABS DRAWN AT 8AM. active Not Available Not Available No t Available pioglitaz one 30 mg tablet take 1 tablet (30 mg) by oral route once daily 11/11 completed pioglita zone 30 mg oral tablet;R ecorded Status: Recorded on: 11/12/19 16 2:24PM;D iscontin ued Status: Disconti nued on: 11/12/19 16 3:01PM;U ser: [email or web address] Not Available Not Available Not Available hydroxyzi ne HCl 10 mg tablet TAKE ONE (1) TO TWO (2) TABLET BY MOUTH THREE TIMES A DAY NEEDED FOR ANXIETY 07/15 completed Not Available Not Available Not Available brompheni ramine-ps eudoephed rine-DM 2 mg-30 mg-10 mg/5 mL oral syrup TAKE 10 ML EVERY FOUR (4) HOURS BY ORAL ROUTE NEEDED. 11/27 completed Not Available Not Available Not Available fluoxetin e 20 mg capsule TAKE ONE (1) CAPSULE BY MOUTH EVERY MORNING DIRECTED TAKE WITH 40MG FOR TOTAL OF 60MG DAILY 07/15 completed Not Available Not Available Not Available sertralin e 50 mg tablet Take 1 tablet every day by oral route for 30 days. 08/25 completed Not Available Not Available Not Available risperido ne 1 mg tablet TAKE ONE TABLET BY MOUTH TWICE DAILY 02/16 completed Not Available Not Available Not Available doxycycli ne hyclate 100 mg tablet TAKE 1 TABLET BY MOUTH TWICE DAILY FOR 10 DAYS 05/18 completed Not Available Not Available Not Available dicyclomi ne 10 mg capsule TAKE ONE (1) CAPSULE THREE (3) TIMES A DAY BY ORAL ROUTE NEEDED FOR 90 DAYS. 05/18 completed Not Available Not Available Not Available Hibiclens 4 % topical liquid APPLY ONE (1) APPLICAT ION THREE (3) TIMES A DAY BY TOPICAL ROUTE NEEDED. 06/19 completed Not Available Not Available Not Available naproxen 500 mg tablet Take 1 tablet every 4-6 hours by oral route as needed for 7 days. 05/14 completed Not Available Not Available Not Available amoxicill in 875 mg-potass ium clavulana te 125 mg tablet TAKE 1 TABLET EVERY 12 HOURS FOR 10 DAYS 07/15 completed Not Available Not Available Not Available pen needle, diabetic 31 gauge x 1/4 05/18 completed Not Available Not Available Not Available Premarin 0.625 mg/gram vaginal cream INSERT ONE (1) G EVERY 72 HOURS BY VAGINAL ROUTE AT BEDTIME FOR 90 DAYS. active Not Available Not Available No t Available Abilify 5 mg tablet Take 1 tablet every day by oral route for 30 days. 07/10 completed Not Available Not Available Not Available Allergy Relief (diphenhy dramine) 25 mg capsule 06/26 completed Not Available Not Available Not Available bupropion HCl XL 300 mg 24 hr tablet, extended release take 1 tablet (300 mg) by oral route once daily 11/11 completed bupropio n HCl 300 mg oral tablet extended release 24 hr;Recor ded Status: Recorded on: 11/12/19 16 2:24PM;D iscontin ued Status: Disconti nued on: 11/12/19 16 3:01PM;U ser: [email or web address] Not Available Not Available Not Available Fiber Therapy (methylce llulose) 500 mg tablet TAKE TWO (2) TABLET BY MOUTH ONCE A DAY 07/15 completed Not Available Not Available Not Available Spiriva with HandiHale r 18 mcg and inhalatio n capsules INHALE ONE (1) CAPSULE EVERY DAY BY INHALATI ON ROUTE. 11/27 completed Not Available Not Available Not Available nitrofura ntoin monohydra te/macroc rystals 100 mg capsule 02/11 completed Not Available Not Available Not Available duloxetin e 60 mg capsule,d elayed release take 1 capsule (60 mg) by oral route once daily 06/22 completed Not Available Not Available Not Available BD Ultra-Fin e Mini Pen Needle 31 gauge x 3/16 USE DIRECTED once per day 05/18 completed Not Available Not Available Not Available calcium 500 mg (as carbonate )-vitamin D3 5 mcg (200 unit) tablet Take 1 tablet twice a day by oral route for 30 days. 09/20 completed Not Available Not Available Not Available BD Ultra-Fin e Short Pen Needle 31 gauge x 5/16 USE TWICE DAILY DIRECTED 2024 active Not Available Not Available Not Avai lable OneTouch UltraMini kit 09/14 completed Not Available Not Available Not Available Advair HFA 115 mcg-21 mcg/actua tion aerosol inhaler Inhale 2 puffs twice a day by inhalati on route for 30 days. 07/15 completed Not Available Not Available Not Available calcium 600 mg (as carbonate )-vitamin D3 10 mcg (400 unit) tablet TAKE ONE (1) TABLET BY MOUTH TWICE DAILY 07/15 completed Not Available Not Available Not Available Symbicort 160 mcg-4.5 mcg/actua tion HFA aerosol inhaler INHALE 2 PUFFS BY MOUTH TWICE DAILY FOR 60 DAYS 05/18 completed Not Available Not Available Not Available FeroSul 325 mg (65 mg iron) tablet TAKE ONE (1) TABLET BY MOUTH ONCE A DAY 07/15 completed Not Available Not Available Not Available Lantus Solostar U-100 Insulin 100 unit/mL (3 mL) subcutane ous pen INJECT 55 UNITS SUBCUTAN EOUSLY EACH MORNING AND IN THE EVENING -- 12 HOURS APART active Not Available Not Available No t Available Humalog KwikPen (U-100) Insulin 100 unit/mL subcutane ous USE DIRECTED , FOLLOW SLIDING SCALE. MAX OF 50 UNITS DAILY. 2024 active Not Available Not Available Not Avai lable diclofena c 1 % topical gel APPLY 2 GRAMS TO THE AFFECTED AREA(S) BY TOPICAL ROUTE 4 TIMES PER DAY 05/18 completed Not Available Not Available Not Available Onglyza 5 mg tablet TAKE 1 TABLET BY MOUTH ONCE DAILY 09/08 completed Not Available Not Available Not Available butalbita l-acetami nophen-ca ffeine 50 mg-300 mg-40 mg capsule TAKE 1 CAPSULE BY MOUTH EVERY 6 HOURS FOR 3 DAYS 05/18 completed Not Available Not Available Not Available Dulera 100 mcg-5 mcg/actua tion HFA aerosol inhaler INHALE TWO (2) PUFFS TWICE A DAY BY INHALATI ON ROUTE. active Not Available Not Available No t Available Kombiglyz e XR 2.5 mg-1,000 mg tablet,ex tended release take 1 tablet by oral route 2 times a day 11/11 completed Kombigly ze XR 2.5-1,00 0 mg oral tablet, ER multipha se 24 hr;Recor ded Status: Recorded on: 11/12/19 16 2:25PM;D iscontin ued Status: Disconti nued on: 11/12/19 16 3:01PM;U ser: [email or web address] Not Available Not Available Not Available Viibryd 20 mg tablet Take 2 tablets every day by oral route for 30 days. 09/14 completed Not Available Not Available Not Available TRUEplus Insulin 1 mL 31 gauge x 5/16 syringe USE TO INJECT INSULIN ONCE DAILY 05/18 completed Not Available Not Available Not Available Victoza 2-Raphael 0.6 mg/0.1 mL (18 mg/3 mL) subcutane ous pen injector Inject 1.8 mg daily 04/25 completed Not Available Not Available Not Available guaifenes in ER 600 mg tablet, extended release 12 hr TAKE ONE (1) TABLET EVERY 12 HOURS BY ORAL ROUTE NEEDED FOR 7 DAYS. 11/27 completed Not Available Not Available Not Available Bydureon 2 mg/0.65 mL subcutane ous pen injector Inject 2 mg every week by subcutan eous route. 09/20 completed Not Available Not Available Not Available Jardiance 10 mg tablet take 1 tablet (10 mg) by oral route once daily in the morning 10/01 completed Not Available Not Available Not Available Jardiance 25 mg tablet TAKE ONE (1) TABLET BY MOUTH EVERY DAY active Not Available Not Available No t Available Trulicity 1.5 mg/0.5 mL subcutane ous pen injector INJECT 1.5MG SUBCUTAN EOUSLY ONCE WEEKLY 06/20 completed Not Available Not Available Not Available Arpita SoloStar U-300 Insulin 300 unit/mL (1.5 mL) subcutane ous pen Inject 88 units every day by subcutan eous route in the morning. 07/03 completed Not Available Not Available Not Available Tresiba FlexTouch U-100 insulin 100 unit/mL (3 mL) subcutane ous pen INJECT 25 UNITS UNDER THE SKIN ONCE DAILY 12/08 completed Not Available Not Available Not Available Ozempic 0.25 mg or 0.5 mg (2 mg/1.5 mL) subcutane ous pen injector inject 0.25 mg SQ once a week 10/28 completed Not Available Not Available Not Available Steglatro 15 mg tablet TAKE ONE (1) TABLET BY MOUTH EVERY DAY 11/18 completed Not Available Not Available Not Available OneTouch Ultra Blue Test Strip USE TO CHECK BLOOD SUGAR TWICE DAILY 02/11 completed Not Available Not Available Not Available Arpita Max U-300 SoloStar 300 unit/mL (3 mL) subcutane ous insulin pen INJECT 135 UNITS SUBCUTAN EOUSLY EVERY DAY 07/28 completed Not Available Not Available Not Available Touramilao Max U-300 SoloStar 85 units daily 06/06 completed Not Available Not Available Not Available Dexcom G6 Clin Tech DIRECTED 05/18 completed Not Available Not Available Not Available Dexcom G6 Transmitt er device DIRECTED CHANGING EVERY 90 DAYS 05/18 completed Not Available Not Available Not Available Emgality 120 mg/mL subcutane ous syringe Inject 2 mL every month by subcutan eous route for 30 days. 11/06 completed Not Available Not Available Not Available Ubrelvy 100 mg tablet PLEASE SEE ATTACHED FOR DETAILED DIRECTIO NS 08/04 completed Not Available Not Available Not Available Nurtec ODT 75 mg disintegr ating tablet Take 1 tablet every day by oral route as needed. active Not Available Not Available No t Available Ajovy 225 mg/1.5 mL subcutane ous auto-inje ctor INJECT 225 MG UNDER THE SKIN EVERY 28 DAYS 05/18 completed Not Available Not Available Not Available Trulicity 3 mg/0.5 mL subcutane ous pen injector 07/28 completed Not Available Not Available Not Available Ozempic 1 mg/dose (4 mg/3 mL) subcutane ous pen injector SUBCUTAN EOUS (INJECT UNDER THE SKIN) ONE (1) MG EVERY 7 DAYS. 05/18 completed Not Available Not Available Not Available Qulipta 60 mg tablet TAKE 1 TABLET BY MOUTH ONCE DAILY 05/18 completed Not Available Not Available Not Available Fusion Dynamic G7 Sensor device USE DIRECTED 2024 active Not Available Not Available Not Avai lable Ozempic 0.25 mg or 0.5 mg (2 mg/3 mL) subcutane ous pen injector INJECT 0.5 MG SUBCUTAN EOUSLY ONCE A WEEK 05/18 completed Not Available Not Available Not Available Vitals Date Recorded Body height Body mass index (BMI) Body weight Heart rate Oxygen saturation Oxygen saturation in Arterial blood by Pulse oximetry Systolic And Diastolic Provider Name and Address Organization Details Last Updated DateTime 5 160.02 cm 31 kg/m2 19719.6 6 g 82 /min 98 % 98 % 126/78 mm[Hg] Laquita Ramirez [facility] 5 11:23:42 Date Recorded Body height Body mass index (BMI) Body weight Heart rate Oxygen saturation Oxygen saturation in Arterial blood by Pulse oximetry Systolic And Diastolic Provider Name and Address Organization Details Last Updated DateTime 5 160.02 cm 30.3 kg/m2 67494 g 74 /min 98 % 98 % 122/86 mm[Hg] Laquita [facility] 5 09:35:19 Date Recorded Body height Body mass index (BMI) Body weight Heart rate Oxygen saturation Oxygen saturation in Arterial blood by Pulse oximetry Systolic And Diastolic Provider Name and Address Organization Details Last Updated DateTime 5 160.02 cm 30.8 kg/m2 51602.0 7 g 70 /min 97 % 97 % 120/82 mm[Hg] Laquita Ramirez [facility] 5 16:22:08 Date Recorded Body height Body mass index (BMI) Body weight Pain severity - 0-10 verbal numeric rating [Score] - Reported Systolic And Diastolic Provider Name and Address Organization Details Last Updated DateTime 11/27/2024 160.02 cm 31.5 kg/m2 29578.44 g 0 124/82 mm[Hg] Ban Chacko [place] - [facility] 5 14:10:28 Date Recorded Body height Body mass index (BMI) Body weight Heart rate Oxygen saturation Oxygen saturation in Arterial blood by Pulse oximetry Systolic And Diastolic Provider Name and Address Organization Details Last Updated DateTime 5 160.02 cm 31.8 kg/m2 26944.1 3 g 82 /min 97 % 97 % 118/80 mm[Hg] Laquita Ramirez [place] - [facility] 5 11:20:01 Social History Question Answer Notes LastModified by Organizat ion Details LastModified Time Tobacco Smoking Status Never Smoker [facility] 05/26/2016 09:06:40 Able To Swim? Yes [email or web address] Information not available 03/11/2021 Do You Have An Advance Directive? No [email or web address] Information not available 08/25/2016 Do You Wear A Helmet When Biking? Yes [email or web address] Information not available 03/11/2021 Are You Blind Or Do You Have Difficulty Seeing? No [email or web address] Information not available 03/11/2021 Is Blood Transfusion Acceptable In An Emergency? Yes Information not available 11/07/2019 What Is Your Level Of Caffeine Consumption? Occasional Information not available 11/07/2019 In The 14 Days Before Symptom Onset, Have You Had Close Contact With A Laboratory-confi rmed COVID-19 While That Case Was Ill? No [email or web address] Information not available 03/27/2021 In The 14 Days Before Symptom Onset, Have You Had Close Contact With A Person Who Is Under Investigation For COVID-19 While That Person Was Ill? No Information not available 03/27/2021 Have You Been To An Area Known To Be High Risk For COVID-19? No Information not available 03/27/2021 Are You Deaf Or Do You Have Serious Difficulty Hearing? No [email or web address] Information not available 05/26/2016 What Type Of Diet Are You Following? REGULAR Information not available 08/25/2016 Which Illicit Or Recreational Drugs Have You Used? No [email or web address] Information not available 08/25/2016 Have You Processed Blood Or Body Fluids From An Ebola Virus Disease Patient Without Appropriate PPE? No [email or web address] Information not available 03/27/2021 Do You Reside In Or Have You Traveled To An Area Where Ebola Virus Transmission Is Active? No [email or web address] Information not available 03/27/2021 What Is The Highest Grade Or Level Of School You Have Completed Or The Highest Degree You Have Received? [id number] [email or web address] Information not available 11/01/2018 How Many Days Of Moderate To Strenuous Exercise, Like A Brisk Walk, Did You Do In The Last 7 Days? 1 [email or web address] Information not available 03/11/2021 On Those Days That You Engage In Moderate To Strenuous Exercise, How Many Minutes, On Average, Do You Exercise? 1 [email or web address] Information not available 03/11/2021 Swimming/diving Yes [email or web address] Informati on not available 03/11/2021 Have There Been Any Changes To Your Family Or Social Situation? No [email or web address] Information not available 03/27/2021 How Hard Is It For You To Pay For The Very Basics Like Food, Housing, Medical Care, And Heating? Not Very Hard Information not available 09/14/2022 What Is The Fluoride Status Of Your Home? Fluoridated Information not available 09/14/2022 Hard Of Hearing Or Deaf In One Or Both Ears? No [email or web address] Information not available 03/11/2021 Have You Recently Or Are You Planning To Travel To An Area With Zika Virus? No [email or web address] Information not available 03/27/2021 Legally Blind In One Or Both Eyes? No [email or web address] Information not available 03/11/2021 Live Alone Or With Others? With Others [email or web address] Information not available 03/11/2021 Do You Have A Medical Power Of Drag Down? No Information not available 03/27/2021 What Was The Date Of Your Most Recent Tobacco Screening? 11/27/2024 Information not available 11/27/2024 How Many Children Do You Have? 3 Information not available 08/25/2016 Performs Monthly Self-breast Exam? No [email or web address] Information not available 03/11/2021 Do You Use Protection During Sex? Always Information not available 11/27/2024 Do You Use Protection Against STDs? No Information not available 11/27/2024 What Is Your Relationship Status? Single [email or web address] Information not available 08/25/2016 Seat Belts Used Routinely Yes [email or web address] Information not available 03/11/2021 Are You Sexually Active? Yes Information not available 11/27/2024 Smoke Alarm In Home Yes [email or web address] Information not available 03/11/2021 Do You Have Smoke And Carbon Monoxide Detectors In Your Home? Yes [email or web address] Information not available 03/27/2021 Are You Passively Exposed To Smoke? No [email or web address] Information not available 08/25/2016 How Much Tobacco Do You Smoke? No Information not available 10/29/2017 General Stress Level Medium [email or web address] Information not available 03/11/2021 Do You Use Sunscreen Routinely? Yes [email or web address] Information not available 08/25/2016 Has Tobacco Cessation Counseling Been Provided? Yes [email or web address] Information not available 10/20/2024 On What Date Was Tobacco Cessation Counseling Provided? 11/27/2024 Non-smok er Information not available 11/27/2024 Do You Have Difficulty Walking Or Climbing Stairs? No [email or web address] Information not available 03/11/2021 What Contraceptive Method Was Reported At Start Of This Visit? Female Sterilization [email or web address] Information not available 09/14/2022 Do You Want To Talk About Contraception Or Prevention During Your Visit Today? No - I Do Not Want To Talk About Contraception Today Because I Am Here For Something Else Information not available 09/14/2022 Do You Have Any Future Plans To Get ? No, I Don't Want To Become [email or web address] Information not available 09/14/2022 Sex: Female Functional Status Question Answer Note LastModified by Organizat ion Details LastModified Time Do you use any illicit or recreational drugs? No [email or web address] Information not available 09/14/2022 Do you or have you ever used any other forms of tobacco or nicotine? No [email or web address] Information not available 09/14/2022 What is your level of alcohol consumption? None Information not available 09/14/2022 Are you currently employed? Yes Information not available 11/27/2024 Do you have transportation difficulties? No [email or web address] Information not available 03/27/2021 What is your status? Not [email or web address] Information no t available 09/14/2022 Are you able to walk independently without assistance or assistive devices? YESWOREST [email or web address] Information not available 03/11/2021 Do you have difficulty doing errands alone? No [email or web address] Information not available 03/11/2021 Are you able to care for yourself independently? Yes [email or web address] Information not available 08/25/2016 What is your occupation? [employer] Information not available 11/27/2024 Do you have difficulty dressing, bathing, grooming, or toileting? No [email or web address] Information not available 03/11/2021 What is your exercise level? None [email or web address] Information not available 08/25/2016 Mental Status Question Answer Note LastModified by Organizat ion Details LastModified Time Do you feel stressed (tense, restless, nervous, or anxious, or unable to sleep at night)? [id number] [email or web address] Information not available 09/14/2022 Do you have difficulty concentrating, remembering or making decisions? No [email or web address] Information no t available 03/11/2021 Family History Relationship Description Onset Age of this Age Resolved Age Notes LastModified by Organization Details LastModified Time Maternal Grandmother Malignant neoplasm of breast [email or web address] Not available 09/14 16:22:56 Maternal Grandmother Diabetes mellitus [email or web address] Not available 2016 09:10:16 Maternal Grandmother Hypertensive disorder [email or web address] Not available 2016 09:10:29 Maternal Grandmother Cerebrovascu lar accident [email or web address] Not available 09:10:50 Mother Diabetes mellitus Not available 2016 09:10:16 Mother Miroslava-Shubham son-White pattern [email or web address] Not available 2020 08:53:10 Father Diabetes mellitus [email or web address] Not available 2016 09:10:16 Maternal Aunt Malignant neoplasm of breast [email or web address] Not available 09/14 16:23:04 Maternal Aunt Malignant neoplasm of lung [email or web address] Not available 09/14 16:23:12 Medical History Condition Response Blood Diseases N Hyperthyroidism N Rheumatoid arthritis N Blood Transfusion Y amputation N Depression N Pneumonia N Incontinence N Edema N Anxiety Disorder Y Obesity Y Restless Leg Syndrome N Infertility N Polyps N Carpal Tunnel N Acid Reflux (GERD) Y Stroke N Varicosities N Tendonitis N Skin Cancer N Fibromyalgia N Anal Fissure N Irritable Bowel Syndrome N Kidney Disease N Hospitalizations Y Gallstones N Goiter N Acne N Eating Disorder N Wyman's Esophagus N Hypertriglyceridemia N Constipation N Embolism N Deviated Septum N Myocardial Infarction N Asthma N Vertigo N Chicken Pox Y Von Willebrands Disease N Lung Disease N Defects or Inherited Disease N Ovarian Cyst N Anesthesia Complications N Testosterone Deficiency N Interstitial Cystitis N Congenital Anomalies N Hypoglycemia N Blood clot N Cellulitis N Endometriosis N Fracture N Panic Disorder N Schizophrenia N Spina Bifida N Parkinson's Disease N STI N Angina N Thyroid Problems N GI Problems N ADD/ADHD N Anemia N Multiple Sclerosis N Lumbago N Psychiatric Illness N Diabetes Y Hyperlipidemia Y Syncope N Abuse/Domestic Violence N Attention Deficient Disorder N Ulcerative colitis N Aneurysm N Bronchitis N Heart Disease N Hypertension Y Pre-Eclampsia N Suicidal Ideation N Pancreatitis N Other N Atrial Fibrillation N congenital heart disease N Erectile Dysfunction N Skin Lesions N Murmur N Alzheimer's Disease N Migraine Headaches Y Tobacco Abuse N Hemorrhoids N Vision or Eye Problems N Arthritis N Cancer N Crohn's Disease N Hypercholesterolemia N Headaches N Heart Problems N Kidney or Bladder Problems N Vitamin B12 Deficiency N AIDS/HIV N Mitral Valve Disorders N Hepatitis N Thyroid Cancer N Neuropathy Y History of DVT N Herniated Disc N Thrombophilias N Breast Cancer N Hernia N Plantar Fasciitis N Hypothyroidism N Breast Problem N Vitamin D Deficiency N Bladder or Kidney Problems N Colorectal Cancer N Concussion N Osteoarthritis N Disc Protrusion N Esophagitis N Abnormal PAP N Mental Illness N Ovarian Cancer N Degenerative Disc Disease N Seizures/Epilepsy N Insomnia N Eczema N Dementia N Cerebrovascular Disease N Depression N Guillain-Bergoo N Sleep Apnea N Osteoporosis N Gynecological History Statement/Question Response Abnormal Pap N Date of Last Mammogram 10/30/2024 On BCP's at Conception? N Post Menopausal Bleeding Y STIs/STDs N Colposcopy 02/07/2021 HPV Vaccine N Current Control Method Menopause Age at Menarche 12 Age at First Child 18 Last Annual Exam/Provider 11/27/24 [place] If Post Menopausal, Age at Menopause 49 Date of Last Colonoscopy 12/04/2020 Sexually Active? Y Menses Monthly N Date of Last Pap Smear 11/27/2024 Sexual Problems? N LMP Unknown 12/04/2020 Hormone Replacement Therapy N Obstetrics History GPAL:G 4 P 3 0 1 3 Type Value Full Term 3 Induced 1 Living 3 Total 4 Immunizations Vaccine Type Date Status Note Provider Name and Address Organization Details Recorded Time pneumococcal polysaccharide PPV23 021 completed Aggie Tanmay null, [facility] 09/20/2020 11:46:29 Influenza, split virus, quadrivalent, preservative 021 cancelled patient objection Azalia Tomas null, [facility] [place] 03/11/2021 09:30:50 zoster recombinant 021 cancelled patient objection Azalia Tomas null, [facility] [place] 03/11/2021 09:30:50 zoster recombinant 023 cancelled patient objection Annabelle Goleta null, [facility] [place] 07/15/2022 13:11:22 Tdap 023 cancelled patient objection Annabelle Goleta null, [facility] [place] 07/15/2022 13:11:32 COVID-19, mRNA, LNP-S, bivalent, PF, 50 mcg/0.5 mL or 25mcg/0.25 mL dose 023 completed Not Available [facility]/18[facility] 13:03:55 Pneumococcal conjugate PCV 13 020 completed Aggie del rosario, [place] - [facility] 06/06/2019 10:39:46 Past Encounters Encounter ID Performer Location Encounter Start Date Encounter Closed Date Diagnosis/Indication Diagnosis SNOMED-CT Code Diagnosis ICD10 Code Diagnosis IMO Codes Diagnosis Note [id number] Azalia Tomas APRN [facility] [address] [place] [address] 05/26/2016 08:56:53 05/26/2016 10:10:51 Diabetes mellitus 74541009 E11.9 Hypertensive disorder 38 098500 I10 Vitamin D deficiency 347 63273 E55.9 Cough 14006572 R05 Allergic rhinitis 824180 04 J30.9 [id number] Azalia Tomas APRN [facility] [address] [place] [address] 06/22/2016 14:29:17 06/22/2016 16:25:47 Diabetes mellitus 46283708 E11.9 Depressive disorder 3548 9007 F32.9 Body mass index 25-29 - overweight 221482490 Z68.29 [id number] LAQUITA BELL, [place] [address] [place] [address] 06/30/2016 09:58:28 06/30/2016 10:47:06 [id number] Azalia Tomas [address] [place] [address] 08/25/2016 08:26:16 08/25/2016 09:44:16 Depressive disorder 74443744 F32.9 Diabetes mellitus 389009 09 E11.9 Screening mammography 24 934082 Z12.31 Screening for malignant neoplasm of colon 743192339 Z12.11 Viral screening 13024854 4 Z11.59 Screening for malignant neoplasm of cervix 950511569 Z12.4 Allergic rhinitis 625750 04 J30.9 Vitamin D deficiency 347 85287 E55.9 Hypertensive disorder 38 190996 I10 Knee pain 32369585 M25.5 69 Body mass index 25-29 - overweight 637994685 Z68.29 [id number] Azalia Tomas [address] [place] [address] 10/01/2016 16:15:10 10/01/2016 17:25:55 Body mass index 30+ - obesity 153698509 Z68.30 Cough 50940340 R05 Upper resp iratory infection 77173087 J06.9 [id number] Azalia Tomas [address] [place] [address] 10/12/2016 15:22:53 10/12/2016 17:34:50 Body mass index 25-29 - overweight 683861001 Z68.29 Acute bronchitis 7858224 2 J20.9 [id number] Azalia Tomas [address] [place] [address] 11/30/2016 08:16:13 11/30/2016 09:31:48 Diabetes mellitus 11141525 E11.9 Body mass index 30+ - obesity 692511752 Z68.30 Hypertriglyceridemia 302 330373 E78.1 Bipolar disorder 7370658 4 F31.9 Depressive disorder 3548 9007 F32.9 [id number] Azalia Tomas[address] [place] [address] 12/08/2016 10:18:20 12/08/2016 12:03:50 Body mass index 30+ - obesity 175318039 Z68.31 Candidiasis of skin 4988 3006 B37.2 [id number] Azalia Tomas[address] [place] [address] 12/15/2016 08:11:31 12/15/2016 10:10:12 Anxiety 33966982 F41.9 Depressive disorder 3548 7 F32.9 Body mass index 30+ - obesity 029095232 Z68.31 Bipolar disorder 9582577 4 F31.9 [id number] Azaila [address] [place] [address] 01/07/2017 08:38:46 01/07/2017 11:41:20 Diabetes mellitus 26715385 E11.9 Body mass index 30+ - obesity 216574303 Z68.31 Chest pain 03780746 R07. 9 Abnormal weight gain 161 751797 R63.5 Anxiety 11826145 F41.9 [id number] Azalia Tomas[address] [place] [address] 01/21/2017 09:07:33 01/21/2017 11:05:32 Uncontrolled type 2 diabetes mellitus 789003865 E11.65 Depressive disorder 3548 9007 F32.9 Bipolar disorder 9691063 4 F31.9 [id number] Azalia [address] [address] 02/16/2017 09:17:27 02/16/2017 10:17:58 Diabetes mellitus 46433892 E11.9 Body mass index 30+ - obesity 490870642 Z68.32 [id number] [facility] by [facility] [address] [place] [address] 03/29/2017 10:28:22 03/29/2017 13:22:21 Cellulitis of skin 397781135 L03.90 Seasonal allergy 6319325 04 J30.2 [id number] MD Michael Santos WE[employer] SPECIALIST [address] [place] [address] J[place] Meza [address] 05/11/2017 12:56:13 05/11/2017 13:29:01 Vulval cellulitis 548976105 N76.2 [id number] MD Michael Santos WEIGHT REDUCTION SPECIALIST [address] [place] [address] [place] Me[place] [address] 05/14/2017 09:10:21 05/14/2017 09:54:15 Vulval cellulitis 563558028 N76.2 [id number] MD Michael Santos WEIGHT REDUCTION SPECIALIST [address] [place] [address] [place] [address] 05/19/2017 10:06:34 05/19/2017 10:35:39 Vulval cellulitis 820274773 N76.2 [id number] Azalia ThomReplaced by [facility] [address] [place], [place] [address] [place] [address] 07/01/2017 09:18:06 07/01/2017 10:37:48 Diabetes mellitus 22898378 E11.9 Hypertensive disorder 38 788089 I10 Vitamin D deficiency 347 85530 E55.9 Depressive disorder 3548 9007 F32.9 Arthritis 1004806 M19.90 Diverticular disease 397 101722 K57.90 Hypertriglyceridemia 302 937704 E78.1 Uncontroll ed type 2 diabetes mellitus 513025168 E11.65 Bipolar disorder 3124320 4 F31.9 Renewal of prescription 459733127 Z76.0 [id number] MD Michael Santos WE[employer] REDUCTION SPECIALIST [address] [place] [address] J[place] Meza [address] 07/09/2017 14:43:27 07/09/2017 15:05:48 Vulval cellulitis 551958887 N76.2 Atrophic vulva 592750881 N90.5 [id number] Azalia Tomas [address] [place] [address] 07/29/2017 09:04:36 07/29/2017 10:02:28 Diabetes mellitus 34180557 E11.9 Hypertensive disorder 38 621054 I10 Hypertriglyceridemia 302 784420 E78.1 Arthritis 3311258 M19.90 Depressive disorder 3548 9007 F32.9 Uncontroll ed type 2 diabetes mellitus 404778721 E11.65 [id number] Azalialuis Tomas[address] [place] [address] 08/31/2017 11:15:18 08/31/2017 12:24:18 Conjunctivitis 0241979 H10.9 Obstructio n of lacrimal canaliculus 936550279 H04.305 [id number] Azalia Tomas [address] [place] [address] 10/29/2017 07:48:01 10/29/2017 09:09:53 Diabetes mellitus 10806913 E11.9 Uncontroll ed type 2 diabetes mellitus 033718256 E11.65 Depressive disorder 3548 9007 F32.9 Renewal of prescription 693346101 Z76.0 Gastroesop hageal reflux disease 476938066 K21.9 Body mass index 30+ - obesity 363708024 Z68.31 [id number] Azalia Tomas[address] [place] [address] 11/04/2017 15:20:08 11/05/2017 11:30:20 Low back pain 931848526 M54.5 Foot pain 24332695 M79.6 71 Low back strain 73441654 1 S39.012D [id number] Azalia Tomas [address] [place] [address] 01/20/2018 09:39:22 01/20/2018 12:05:50 Diabetes mellitus 36435713 E11.9 Abdominal pain 66600846 R10.9 Screening mammography 24 218518 Z12.31 [id number] Azalia Tomas [address] [place] [address] 04/25/2018 14:37:57 05/31/2018 10:43:50 Diabetes mellitus 90894371 E11.9 Lateral epicondylitis 20 2652025 M77.11 Uncontroll ed type 2 diabetes mellitus 173732293 E11.65 [id number] Azalia Tomas [address] [place] [address] 06/17/2018 14:30:44 06/17/2018 16:51:06 Diabetes mellitus 32121094 E11.9 Uncontroll ed type 2 diabetes mellitus 430713915 E11.65 Influenza 0292162 J11.1 [id number] Azalia Thom [address] [place] [address] 07/07/2018 13:41:52 07/07/2018 15:53:23 Abscess 833632024 L02.91 Diabetes mellitus 856101 09 E11.9 [id number] Azalia Tomas [address] [place] [address] 07/19/2018 10:05:52 07/19/2018 11:26:07 Diabetes mellitus 16763584 E11.9 Retinopath y due to diabetes mellitus 7659168 E11.3293 Body mass index 30+ - obesity 004908651 Z68.33 [id number] Azalia Tomas [address] [place] [address] 08/05/2018 09:27:08 08/05/2018 10:33:07 Uncontrolled type 2 diabetes mellitus 119879914 E11.65 [id number] Azalia Tomas [address] [place] [address] 08/18/2018 15:59:11 08/18/2018 16:51:07 Upper respiratory infection 68129453 J06.9 Fever 214087796 R50.9 Abscess 905600209 L02.91 [id number] Vincent Ogden MD [address] [place] [address] 09/08/2018 14:18:52 09/08/2018 16:07:04 Upper respiratory infection 77153908 J06.9 Acute laryngitis 7833909 J04.0 [id number] Azalia Tomas [address] [place] [address] 09/30/2018 14:52:44 09/30/2018 16:08:12 Costal chondritis 32296405 M94.0 [id number] Rita Escalera MD [place] WE[employer] SPECIALIST [address] [place] [address] [place] [address] 11/01/2018 10:10:36 11/01/2018 11:00:17 Routine gynecologic examination done 0199065341 9101 Z01.419 Depression screening 171 665697 Z13.89 Diet education 38778452 Z71.3 Counseling 258037036 Z71 .82 Exercise counsellin g. Patient encouraged to exercise 30 minutes 5 days a week. Examinatio n of blood pressure 924339720 Z01.30 Body mass index 30+ - obesity 655968237 Z68.32 Screening for malignant neoplasm of cervix 452928676 Z12.4 Atrophy of vagina 306338 009 N95.2 [id number] Rita Escalera MD [place] WE[employer]UCTION SPECIALIST [address] [place] [address] [place] [address] 11/07/2019 13:43:58 11/07/2019 14:43:16 Routine gynecologic examination done 9566092230 9101 Z01.419 Depression screening 171 464066 Z13.89 Diet education 85887915 Z71.3 Counseling 089977156 Z71 .82 Exercise counsellin g. Patient encouraged to exercise 30 minutes 5 days a week. Examinatio n of blood pressure 976982642 Z01.30 Candidiasis of vagina 72 542268 B37.3 Menopause 507605861 Z78. 0 Herniation of rectum into vagina 444570680 N81.6 [id number] Azalia Tomas [facility] [address] [place] [address] 11/07/2018 09:45:13 11/07/2018 10:50:07 Diabetes mellitus 47575900 E11.9 Hypertensive disorder 38 067961 I10 Depressive disorder 3548 9007 F32.9 Hypertriglyceridemia 302 360715 E78.1 Arthritis 6341361 M19.90 Retinopath y due to diabetes mellitus 4830814 E11.3293 [id number] MD Michael Santos WEIGHT REDUCTION SPECIALIST [address] [facility] [place] Me[place] [address] 11/24/2018 13:41:16 11/24/2018 14:08:38 [facility] 43049957 B37.3 [id number] Azalia Tomas [address] [place] [address] 02/06/2019 14:02:30 02/06/2019 15:18:39 Abscess 735222935 L02.91 [id number] Azalia Tomas [address] [place] [address] 04/04/2019 13:11:55 04/04/2019 14:07:29 Injury of face 108228930 S09.93XA Injury of hip region 125 291137 S79.912A Injury of ribs 620996135 S29.9XXA [id number] Azalia Tomas [address] [place] [address] 06/06/2019 09:22:52 06/06/2019 10:44:15 Chronic depression 395921988 F34.1 Hypertensive disorder 38 977945 I10 Diabetes mellitus 384470 09 E11.9 Anxiety 89049635 F41.9 Depressive disorder 3548 7 F32.9 Multinodular goiter 2375 24798 E04.2 Active or passive immunization 013354610 Z23 [id number] Azalia Tomas [address] [place] [address] 06/19/2019 10:44:59 06/19/2019 13:10:39 Chronic depression 116348618 F34.1 Anxiety 45685278 F41.9 Depressive disorder 3548 9007 F32.9 Headache 34756127 R51 Migraine 67070076 G43.90 9 Diabetes mellitus 075940 09 E11.9 Pharyngitis 444313272 J0 2.9 [id number] Azalialuis Tomas[address] [place] [address] 07/03/2019 09:48:14 07/03/2019 11:08:42 Chronic depression 267207013 F34.1 Hypertensive disorder 38 012784 I10 Diabetes mellitus 956540 09 E11.9 Anxiety 51714345 F41.9 Depressive disorder 3548 9007 F32.9 Tinea corporis 05017046 B35.4 [id number] Azalialuis Tomas[address] [place] [address] 07/11/2019 10:58:23 07/11/2019 13:40:44 Chronic depression 899742535 F34.1 Chronic anxiety 36148832 9 F41.9 [id number] Azalialuis Tomas[address] [place] [address] 07/27/2019 08:42:51 07/27/2019 09:42:37 Chronic depression 013944447 F34.1 Anxiety 23117504 F41.9 [id number] Sasha Wills[address] [place] [address] 08/15/2019 10:50:01 08/15/2019 13:07:13 Migraine 55863003 G43.097 [id number] GORGE Swain WEIGHT REDUCTION SPECIALIST [address] [place] [address] [place] [address] 08/16/2019 10:33:53 08/16/2019 11:28:40 Migraine 66611752 G43.909 Type 2 cortney betes mellitus without complication 077037956 E11.9 Candidiasis of vagina 72 785255 B37.3 [id number] Azalialuis Tomas [address] [place] [address] 08/22/2019 09:38:59 08/22/2019 10:14:49 Migraine 25899460 G43.909 Candidiasis of skin 4988 3006 B37.2 Tension-type headache 39 2174801 G44.062 [id number] Azalia Tomas [address] [place] [address] 10/03/2019 10:54:41 10/03/2019 12:10:28 Diabetes mellitus 18154173 E11.9 Chronic anxiety 95429157 9 F41.9 Tension-type headache 39 2634276 G44.214 [id number] Azalia Tomas [address] [place] [address] 4 12/11/2019 13:04:31 12/11/2019 14:28:54 Abscess 554613219 L02.91 [id number] Annabelle Gross [address] [place] [address] 4 01/08/2020 10:20:20 01/08/2020 11:30:36 Pleuritic pain 4371764 R07.81 Diabetes mellitus 421628 09 E11.9 Hypertensive disorder 38 331273 I10 Body mass index 30+ - obesity 918839467 Z68.32 [id number] Azalia Tomas [address] [place] [address] 01/22/2020 13:48:03 01/22/2020 15:30:40 Pleurisy 284692200 R09.1 Thoracic back pain 50324 8004 M54.6 [id number] Azalia Tomas [address] [place] [address] 4 05/24/2020 12:45:47 05/24/2020 13:27:20 Viral screening 399634286 Z11.59 Upper resp iratory infection 00953179 J06.9 [id number] Azalia Tomas [address] [place] [address] 06/03/2020 13:10:17 06/03/2020 15:19:12 Suspected COVID-19 275853382 Z03.818 Headache 03603465 R51.9 Generalize d aches and pains 50403854 R52 Fever 073728098 R50.9 Lower resp iratory tract infection 09835814 J22 [id number] Azalia Tomas [address] [place] [address] 08/09/2020 08:45:23 08/09/2020 09:22:42 Viral screening 235473909 Z11.59 [id number] Azalia Tomas [address] [place] [address] 09/20/2020 09:48:28 09/20/2020 11:07:51 Chronic depression 628490885 F34.1 Hypertriglyceridemia 302 791636 E78.1 Vitamin D deficiency 347 11637 E55.9 Arthritis 0138845 M19.90 Migraine 81679263 G43.90 9 Hypertensive disorder 38 211207 I10 stable Diabetes mellitus 266092 09 E11.9 Noncomplia nce with medication regimen 348193918 Z91.14 Active or passive immunization 602645430 Z23 Screening for malignant neoplasm of colon 763616857 Z12.11 Spasm of back muscles 20 6816158 M62.830 Nausea 851376818 R11.0 [id number] Azalia Tomas [address] [place] [address] 10/24/2020 16:00:32 10/24/2020 17:24:11 Acute low back pain 137468927 M54.5 [id number] Azalia Tomas [address] [place] [address] 4 11/07/2020 09:44:54 11/07/2020 10:52:45 Low back pain 891244363 M54.5 Thoracic back pain 66086 8004 M54.6 Neck pain 78780441 M54.2 [id number] Azalia Tomas [address] [place] [address] 12/23/2020 10:15:34 12/23/2020 11:16:09 Diabetes mellitus 40311455 E11.9 Hypertensive disorder 38 818451 I10 stable Atrophic vaginitis 53642 000 N95.2 Iron defic iency anemia 47180929 D50.9 [id number] Azalia Tomas APRN [place] [address] [place] [address] 02/11/2021 16:03:58 02/12/2021 10:33:01 Proliferative retinopathy due to diabetes mellitus 15956224 E11.3599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
--- OUTSIDE RECORDS SUMMARY | 2025-02-27 13:51 | XMS_ITS | Continuity of Care Document ---
Author Organization [place] - [facility] Address [address] [place] [address] Care Team Providers Care Crimper Assembler Name Role Phone MER REYNOSO Primary Care Provider RENE CH Science And Operations Officer RENE CH Science And Operations Officer [phone] Assessment No assessment recorded. Plan of Treatment [...] Procedures None recorded. Surgeries None recorded. Imaging None recorded. Medication Orders bupivacai ne HCl 0.5 % (5 mg/mL) injection solution [id number] [facility] - [address], [address], 02/21/2025 09:46:21 triamcino lone acetonide 40 mg/mL suspensio n for injection 2024 025 [id number] [facility] - [address], [address], 02/21/2025 09:46:21 Patient TargetsNo targets recorded. Patient InstructionsNo instructions [...] is due to type 2 diabetes mellitus [id number] Active 2022 Jarod Wilhelm MD [address] [place] [address],[place] te [address] [place] [address], [phone], [place] - [facility] [place] & [place] 3 08:08:48 Gastroesoph ageal reflux disease without esophagitis 079168375 Active 2022 Jarod Wilhelm MD [facility],[address], [place], [address], [place] - [facility] [place] & [place] 3 08:17:11 Trigger finger of right hand [id number] 9101 Active 2022 Mary Link null, [place] - [facility] [place] [facility] [place] 3 10:38:32 Trigger finger of left hand [id number] 9107 Active 2022 Mary Link null, [place] - [facility] [place] [facility] [place] 3 10:38:53 Problem Notes None recorded. Procedures Surgical History Date Name Laterality Status Provider Name and Address Organization Details Recorded Time 1 gastric emptying study completed Jose LEONARDO - [facility] [place] [facility] [place] 09/23/2022 08:04:18 1 EGD/Endoscopy completed Jose LEONARDO - [facility] [place] & [place] 09/23/2022 08:03:52 1 Colonoscopy completed Jose LEONARDO - [facility] [place] & [place] 09/23/2022 08:03:41 1 US scan of upper abdomen completed Jose LEONARDO - [facility] [place] & [place] 09/23/2022 08:04:36 7 Colonoscopy completed Jose SALINAS [facility] & [place] 09/23/2022 08:03:27 procedure on hand completed Jose SALINAS [facility] & [place] 09/23/2022 07:54:52 Colonoscopy completed Jose SALINAS [facility] & [place] 09/23/2022 07:55:03 CT of abdomen and pelvis completed Jose SALINAS [facility] & [place] 09/23/2022 08:04:58 Imaging Results None recorded. Procedure Notes None recorded. Medical Equipment None Reported. Allergies Allergen ID Allergen Name Allergen Category Reaction Reaction Severity Criticality Documentation Date Start Date Code Code System Note Provider Name and Address Organization Details Recorded Time 94074 Bactrim medicatio n anaphylax is severe Not available 09/17/2022 59414 9 RxNorm JORDEN Lebron JAKE [facility] & [place] 3 10:43:34 42620 Cipro medicatio n Not available Not available Not available 09/23/202278549 3 RxNorm JORDEN Sosa [facility] & [place] 3 07:51:12 88130 Keflex medicatio n Not available Not available Not available 09/23/202299678 7 RxNorm JORDEN Sosa [facility] & [place] 3 07:51:19 45295 Abilify medicatio n Not available Not available Not available 09/23/2022 72755 3 RxNorm JORDEN Sosa [facility] & [place] 3 07:51:26 Medications Name Sig Start Date [...] Time Tobacco Smoking Status Never Smoker Mamie Aguilar null, [place] - [facility] [place] [facility] [place] 08/31/2022 10:31:40 Do You Have An Advance [...] anxious, or unable to sleep at night)? [id number] Information not available 09/17/2022 Family History Relationship [...] PPV23 1 completed JORDEN Sosa - [facility] [place] 09/23/2022 07:50:56 Pneumococcal conjugate PCV 13 0 completed JORDEN Sosa - [facility] 09/23/2022 07:50:56 tetanus toxoid, unspecified formulation 3 completed Not Available [facility] 10/20/2022 10:01:16 Past Encounters Encounter ID Performer Location Encounter Start Date Encounter Closed Date Diagnosis/Indication Diagnosis SNOMED-CT Code Diagnosis ICD10 Code Diagnosis IMO Codes Diagnosis Note [id number] MD ALYSHA Sweet [address] [address] 02/01/2025 08:47:23 02/01/2025 09:47:24 Lumbar radiculitis 7832001811 5294171 M54.16 [id number] Prolapsed lumbar intervertebral disc 272695148 M51.26 705300 Numbness a nd tingling sensation of skin 9892681573 02 R20.0 R20.2 454228 [id number] MD ALYSHA Sweet [address] [address] 02/21/2025 08:20:44 02/21/2025 09:26:52 Trochanteric bursitis of left hip [id number] 29965 M70.62 [id number] Health Concerns Section Related Observation LastModified by Organization Detai ls LastModified Time None Recorded Concern Status LastModified by Organization Details LastModified Time None Recorded Payers Encounter Date Sequence Insurance Name Policy Number Policy Kennedy Covered Member ID Kennedy Member ID Guarantor Name 02/21/2025 JONATHAN LYNN [facility] Gaviota Karimi Notes Date Note Type Note Provider Name and Address Organization Details Recorded Time 02/21/2025 text/html ROS as noted in the HPI This is a workers compensation claim for left hip from [employer] 08/19/24. C/O lateral soreness. She has had previous injections into left hip bursa that really helped. She would like an injection today. 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 Riky Ford MD [address] [facility],[address], [place], [address], [facility] & [place] 02/21/2025 09:21:19 OBGyn Episode No OBEpisode recorded.
== END 2025-02-27 23:59 | disposition home or self-care (01) ==
LOC: RAD 13:31
PROVIDERS: PCP Student in an Organized Health Care Education/Training Program; Visit Provider Orthopaedic Surgery
DX: M47.816 Spondylosis without myelopathy or radiculopathy, lumbar region (principal); M51.26 Other intervertebral disc displacement, lumbar region
CPT/HCPCS: 72148